=== PATIENT | female | born 1975 | race American Indian/Alaskan Native ===

== ENCOUNTER 2017-09-06 16:00 | Inpatient (IN) | payer SELFPAY ==
[2017-09-06] MEDS ORDERED: ASPIRIN PO ONE (17:07)
[2017-09-06 18:01] LABS: Mean Corpuscular HGB Conc 28 % (30-34); Platelet Count 562 K/mm3 (140-440); Red Blood Count 2.81 M/mm3 (3.65-5.03)
[2017-09-06 18:05] LABS: Hematocrit 17.3 % (30.3-42.9); Hemoglobin 4.9 gm/dl (10.1-14.3); Mean Corpuscular Hemoglobin 17 pg (28-32); Mean Corpuscular Volume 62 fl (79-97); Red Cell Distribution Width 24.7 % (13.2-15.2)
[2017-09-06 18:18] LABS: BUN/Creatinine Ratio 12; Blood Urea Nitrogen 6 mg/dL (7-17); Calcium 8.7 mg/dL (8.4-10.2); Hemolysis Index 4
[2017-09-06] MEDS ORDERED: NACL 0.9% 500 ML 500 ML IV ONE (18:29)
--- NOTE | 2017-09-06 18:34 | Emergency Department Report ---
ED General Adult HPI - General Chief complaint: Chest Pain Stated complaint: CHEST PAIN/DIZZINESS Time Seen by Provider: 09/06/17 18:13 Source: patient Mode of arrival: Ambulatory Limitations: No Limitations - History of Present Illness Initial comments: Patient presents to emergency department with a chief complaint of being lightheaded with standing and shortness of breath with exertion. Patient states this has been present for the last 3-4 weeks and the last time she felt like this patient Avel was 4.6. Patient denies any blood in her stool or having heavy cycles but endorses have any history of fibroid -: Gradual Radiation: non-radiation Severity scale (0 -10): 0 Consistency: constant Improves with: none Worsens with: none Associated Symptoms: denies other symptoms Treatments Prior to Arrival: none - Related Data Home Medications Medication Instructions Recorded Confirmed Last Taken Iron 1 tab PO TID 12/02/12 01/27/14 01/26/14 Previous Rx's Medication Instructions Recorded Last Taken Type Ferrous Sulfate [Ferrous Sulfate 300 mg PO BID #120 ml 04/10/17 Unknown Rx Oral Liq 300 Mg/5 Ml] Allergies Allergy/AdvReac Type Severity Reaction Status Date / Time shellfish derived Allergy Swelling Verified 12/02/12 11:22 ED Review of Systems ROS: Stated complaint: CHEST PAIN/DIZZINESS Other details as noted in HPI Comment: All other systems reviewed and negative Constitutional: denies: chills, fever Eyes: denies: eye pain, eye discharge, vision change ENT: denies: ear pain, throat pain Respiratory: SOB with exertion. denies: cough, shortness of breath, wheezing Cardiovascular: denies: chest pain, palpitations Endocrine: no symptoms reported Gastrointestinal: denies: abdominal pain, nausea, diarrhea Genitourinary: denies: urgency, dysuria, discharge Musculoskeletal: denies: back pain, joint swelling, arthralgia Skin: denies: rash, lesions Neurological: other (lightheaded). denies: headache, weakness, paresthesias Psychiatric: denies: anxiety, depression Hematological/Lymphatic: denies: easy bleeding, easy bruising ED Past Medical Hx - Past Medical History Hx Congestive Heart Failure: No Hx Diabetes: No Hx Asthma: No Hx COPD: No Hx HIV: No Additional medical history: Anemia - Surgical History Additional Surgical History: Ankle - Social History Smoking Status: Never Smoker Substance Use Type: Alcohol - Medications Home Medications: Home Medications Medication Instructions Recorded Confirmed Last Taken Type Iron 1 tab PO TID 12/02/12 01/27/14 01/26/14 History Ferrous Sulfate [Ferrous Sulfate 300 mg PO BID #120 ml 04/10/17 Unknown Rx Oral Liq 300 Mg/5 Ml] ED Physical Exam - General Limitations: No Limitations General appearance: alert, in no apparent distress - Head Head exam: Present: atraumatic, normocephalic - Eye Eye exam: Present: normal appearance, other (pale palpebral conjunctiva) - ENT ENT exam: Present: mucous membranes moist - Neck Neck exam: Present: normal inspection - Respiratory Respiratory exam: Present: normal lung sounds bilaterally. Absent: respiratory distress, wheezes, rales - Cardiovascular Cardiovascular Exam: Present: normal rhythm, tachycardia. Absent: systolic murmur, diastolic murmur, rubs, gallop - GI/Abdominal GI/Abdominal exam: Present: soft, normal bowel sounds. Absent: distended, tenderness - Rectal Rectal exam: Present: deferred, other (patient declined rectal exam) - Extremities Exam Extremities exam: Present: normal inspection - Back Exam Back exam: Present: normal inspection - Neurological Exam Neurological exam: Present: alert, oriented X3, CN II-XII intact. Absent: motor sensory deficit - Psychiatric Psychiatric exam: Present: normal affect, normal mood - Skin Skin exam: Present: warm, dry, intact, normal color. Absent: rash ED Course Vital Signs 09/06/17 09/06/17 09/06/17 17:02 18:52 19:20 Temperature 98.4 F 98.6 F 98.5 F Pulse Rate 92 H 90 89 Respiratory 16 16 18 Rate Blood Pressure 118/39 Blood Pressure 111/63 98/58 [Left] O2 Sat by Pulse 100 100 100 Oximetry 09/06/17 09/06/17 09/06/17 20:40 20:55 21:10 Temperature 98.2 F 98.8 F 98.7 F Pulse Rate 81 81 79 Respiratory 18 18 17 Rate Blood Pressure 104/62 97/64 101/64 Blood Pressure [Left] O2 Sat by Pulse 100 100 100 Oximetry ED Medical Decision Making - Lab Data Result diagrams: 09/06/17 17:24 09/06/17 17:24 - EKG Data EKG shows normal: sinus rhythm Rate: normal - EKG Data Interpretation: no acute changes - Medical Decision Making Discussed results with patient Transfusion of packed red blood cells started in the ED Critical Care Time: Yes Critical care time in (mins) excluding proc time.: 45 Critical care attestation.: If time is entered above; I have spent that time in minutes in the direct care of this critically ill patient, excluding procedure time. ED Disposition Clinical Impression: Anemia requiring transfusions Disposition: OP ADMIT IP TO THIS HOSP Is pt being admited?: Yes Does the pt Need Aspirin: No Condition: Fair Instructions: Anemia (ED) Referrals: PRIMARY CARE, [Primary Care Provider] - 3-5 Days Time of Disposition: 19:00
[2017-09-06 18:39] LABS: Giant Platelets 2+; Hypochromasia 3+; Total Cells Counted 100
[2017-09-06 18:40] LABS: Ovalocytes 1+; Platelet Estimate Appears Increased; Tear Drop Cells 1+
[2017-09-06 18:42] LABS: Schistocytes Few
[2017-09-06 19:11] LABS: INR 0.99 (0.87-1.13)
[2017-09-06 19:12] LABS: Partial Thromboplastin Time 30.1 Sec. (24.2-36.6)
[2017-09-06] MEDS ORDERED: NACL 0.9% 500 ML 500 ML ONE (20:32)
[2017-09-06] MEDS ORDERED: PERCOCET 5/325 PO PRN (23:37)
[2017-09-06] MEDS ORDERED: MORPHINE IV PRN (23:37)
[2017-09-06] MEDS ORDERED: ZOFRAN IV PRN (23:37)
[2017-09-06] MEDS ORDERED: SODIUM CHLORIDE FLUSH SYRINGE 10 ML IV PRN (23:37)
[2017-09-06] MEDS ORDERED: TYLENOL PO PRN (23:37)
--- NOTE | 2017-09-07 01:27 | History and Physical Report ---
History of Present Illness Date of examination: 09/06/17 Date of admission: 09/06/17 23:37 Chief complaint: Chief complaint: Feels weak and tired for 4 weeks Lightheaded off and on for 4 weeks History of present illness: History of Present Illness: 42-year-old black female comes in for shortness of breath and weakness. Feels dizzy and lightheaded. This is been going on for the last 4 weeks. Patient has recurrent anemia secondary to uterine fibroids. No syncope. No dark stools. Slightly heavy menstrual periods present. Patient also does not take any iron supplements because she says she cannot tolerate pills. No recent travel. No chest pain. No exacerbating or relieving factors Past Medical History Hx Congestive Heart Failure: No Hx Diabetes: No Hx Asthma: No Hx COPD: No Hx HIV: No Additional medical history: Anemia Surgical History Additional Surgical History: Ankle Social History Smoking Status: Never Smoker Substance Use Type: Alcohol Family history Htn Medications Home Medications: Home Medications Medication Instructions Recorded Confirmed Last Taken Type Iron 1 tab PO TID 12/02/12 01/27/14 01/26/14 History Ferrous Sulfate [Ferrous Sulfate 300 mg PO BID #120 ml 04/10/17 Unknown Rx Oral Liq 300 Mg/5 Ml] Review of Systems ROS: Stated complaint: CHEST PAIN/DIZZINESS Other details as noted in HPI Comment: All other systems reviewed and negative Constitutional: denies: chills, fever Eyes: denies: eye pain, eye discharge, vision change ENT: denies: ear pain, throat pain Respiratory: SOB with exertion. denies: cough, shortness of breath, wheezing Cardiovascular: denies: chest pain, palpitations Endocrine: no symptoms reported Gastrointestinal: denies: abdominal pain, nausea, diarrhea Genitourinary: denies: urgency, dysuria, discharge Musculoskeletal: denies: back pain, joint swelling, arthralgia Skin: denies: rash, lesions Neurological: other (lightheaded). denies: headache, weakness, paresthesias Psychiatric: denies: anxiety, depression Hematological/Lymphatic: denies: easy bleeding, easy bruising Medications and Allergies Allergies Allergy/AdvReac Type Severity Reaction Status Date / Time shellfish derived Allergy Swelling Verified 12/02/12 11:22 Home Medications Medication Instructions Recorded Confirmed Last Taken Type Iron 1 tab PO TID 12/02/12 01/27/14 01/26/14 History Ferrous Sulfate [Ferrous Sulfate 300 mg PO BID #120 ml 04/10/17 Unknown Rx Oral Liq 300 Mg/5 Ml] Active Meds: Active Medications Acetaminophen (Tylenol) 650 mg PO Q4H PRN PRN Reason: Pain MILD(1-3)/Fever >100.5/TOBAR Morphine Sulfate (Morphine) 2 mg IV Q4H PRN PRN Reason: Pain, Moderate (4-6) Ondansetron HCl (Zofran) 4 mg IV Q8H PRN PRN Reason: Nausea And Vomiting Oxycodone/Acetaminophen (Percocet 5/325) 1 tab PO Q6H PRN PRN Reason: Pain, Moderate (4-6) Sodium Chloride (Sodium Chloride Flush Syringe 10 Ml) 10 ml IV BID ALEJANDRINA Sodium Chloride (Sodium Chloride Flush Syringe 10 Ml) 10 ml IV PRN PRN PRN Reason: LINE FLUSH Exam - Physical Exam Narrative exam: Lying in bed comfortably - Constitutional Vitals: Temp Pulse Resp BP Pulse Ox 98.8 F 71 20 122/52 100 09/07/17 00:52 09/07/17 00:52 09/07/17 00:52 09/07/17 00:52 09/07/17 00:52 General appearance: Present: no acute distress, well-nourished - EENT Eyes: Present: PERRL ENT: hearing intact, clear oral mucosa, other (pale conjunctiva and tongue) - Neck Neck: Present: supple, normal ROM - Respiratory Respiratory effort: normal Respiratory: bilateral: CTA - Cardiovascular Heart rate: 80 Rhythm: regular Heart Sounds: Present: S1 & S2. Absent: rub, click - Extremities Extremities: no ischemia, pulses intact, pulses symmetrical, No edema Peripheral Pulses: within normal limits - Abdominal General gastrointestinal: Present: soft, non-tender, non-distended, normal bowel sounds Female genitourinary: Present: normal - Rectal Rectal Exam: deferred - Integumentary Integumentary: Present: clear, warm, dry - Musculoskeletal Musculoskeletal: gait normal, strength equal bilaterally - Psychiatric Psychiatric: appropriate mood/affect, intact judgment & insight - Neurologic Neurologic: CNII-XII intact, moves all extremities - Allied Health Allied health notes reviewed: nursing, case management Results - Labs CBC & Chem 7: 09/06/17 17:24 09/06/17 17:24 Labs: Laboratory Last Values WBC 5.8 K/mm3 (4.5-11.0) 09/06/17 17:24 RBC 2.81 M/mm3 (3.65-5.03) L 09/06/17 17:24 Hgb 4.9 gm/dl (10.1-14.3) L* 09/06/17 17:24 Hct 17.3 % (30.3-42.9) L* 09/06/17 17:24 MCV 62 fl (79-97) L 09/06/17 17:24 MCH 17 pg (28-32) L 09/06/17 17:24 MCHC 28 % (30-34) L 09/06/17 17:24 RDW 24.7 % (13.2-15.2) H 09/06/17 17:24 Plt Count 562 K/mm3 (140-440) H 09/06/17 17:24 Add Manual Diff Complete 09/06/17 17:24 Total Counted 100 09/06/17 17:24 Seg Neuts % (Manual) 69.0 % (40.0-70.0) 09/06/17 17:24 Band Neutrophils % 0 % 09/06/17 17:24 Lymphocytes % (Manual) 21.0 % (13.4-35.0) 09/06/17 17:24 Reactive Lymphs % (Man) 0 % 09/06/17 17:24 Monocytes % (Manual) 6.0 % (0.0-7.3) 09/06/17 17:24 Eosinophils % (Manual) 1.0 % (0.0-4.3) 09/06/17 17:24 Basophils % (Manual) 3.0 % (0.0-1.8) H 09/06/17 17:24 Metamyelocytes % 0 % 09/06/17 17:24 Myelocytes % 0 % 09/06/17 17:24 Promyelocytes % 0 % 09/06/17 17:24 Blast Cells % 0 % 09/06/17 17:24 Nucleated RBC % 2.0 % (0.0-0.9) H 09/06/17 17:24 Seg Neutrophils # Man 4.0 K/mm3 (1.8-7.7) 09/06/17 17:24 Band Neutrophils # 0.0 K/mm3 09/06/17 17:24 Lymphocytes # (Manual) 1.2 K/mm3 (1.2-5.4) 09/06/17 17:24 Abs React Lymphs (Man) 0.0 K/mm3 09/06/17 17:24 Monocytes # (Manual) 0.3 K/mm3 (0.0-0.8) 09/06/17 17:24 Eosinophils # (Manual) 0.1 K/mm3 (0.0-0.4) 09/06/17 17:24 Basophils # (Manual) 0.2 K/mm3 (0.0-0.1) H 09/06/17 17:24 Metamyelocytes # 0.0 K/mm3 09/06/17 17:24 Myelocytes # 0.0 K/mm3 09/06/17 17:24 Promyelocytes # 0.0 K/mm3 09/06/17 17:24 Blast Cells # 0.0 K/mm3 09/06/17 17:24 WBC Morphology Not Reportable 09/06/17 17:24 Hypersegmented Neuts Not Reportable 09/06/17 17:24 Hyposegmented Neuts Not Reportable 09/06/17 17:24 Hypogranular Neuts Not Reportable 09/06/17 17:24 Smudge Cells Not Reportable 09/06/17 17:24 Toxic Granulation Not Reportable 09/06/17 17:24 Toxic Vacuolation Not Reportable 09/06/17 17:24 Dohle Bodies Not Reportable 09/06/17 17:24 Pelger-Huet Anomaly Not Reportable 09/06/17 17:24 Jethro Rods Not Reportable 09/06/17 17:24 Platelet Estimate Appears increased 09/06/17 17:24 Clumped Platelets Not Reportable 09/06/17 17:24 Plt Clumps, EDTA Not Reportable 09/06/17 17:24 Large Platelets Not Reportable 09/06/17 17:24 Giant Platelets 2+ 09/06/17 17:24 Platelet Satelliting Not Reportable 09/06/17 17:24 Plt Morphology Comment Not Reportable 09/06/17 17:24 RBC Morphology Not Reportable 09/06/17 17:24 Dimorphic RBCs Not Reportable 09/06/17 17:24 Polychromasia Not Reportable 09/06/17 17:24 Hypochromasia 3+ 09/06/17 17:24 Poikilocytosis Not Reportable 09/06/17 17:24 Anisocytosis Not Reportable 09/06/17 17:24 Microcytosis 2+ 09/06/17 17:24 Macrocytosis Not Reportable 09/06/17 17:24 Spherocytes Not Reportable 09/06/17 17:24 Pappenheimer Bodies Not Reportable 09/06/17 17:24 Sickle Cells Not Reportable 09/06/17 17:24 Target Cells Not Reportable 09/06/17 17:24 Tear Drop Cells 1+ 09/06/17 17:24 Ovalocytes 1+ 09/06/17 17:24 Helmet Cells Not Reportable 09/06/17 17:24 [place] Bodies Not Reportable 09/06/17 17:24 Kenna Rings Not Reportable 09/06/17 17:24 [place] Cells Not Reportable 09/06/17 17:24 Bite Cells Not Reportable 09/06/17 17:24 Crenated Cell Not Reportable 09/06/17 17:24 Elliptocytes 1+ 09/06/17 17:24 Acanthocytes (Spur) Not Reportable 09/06/17 17:24 Rouleaux Not Reportable 09/06/17 17:24 Hemoglobin C Crystals Not Reportable 09/06/17 17:24 Schistocytes Few 09/06/17 17:24 Malaria parasites Not Reportable 09/06/17 17:24 Boni Bodies Not Reportable 09/06/17 17:24 Hem Pathologist Commnt No 09/06/17 17:24 PT 13.6 Sec. (12.2-14.9) 09/06/17 18:47 INR 0.99 (0.87-1.13) 09/06/17 18:47 APTT 30.1 Sec. (24.2-36.6) 09/06/17 18:47 Sodium 135 mmol/L (137-145) L 09/06/17 17:24 Potassium 3.7 mmol/L (3.6-5.0) 09/06/17 17:24 Chloride 97.8 mmol/L (98-107) L 09/06/17 17:24 Carbon Dioxide 22 mmol/L (22-30) 09/06/17 17:24 Anion Gap 19 mmol/L 09/06/17 17:24 BUN 6 mg/dL (7-17) L 09/06/17 17:24 Creatinine 0.5 mg/dL (0.7-1.2) L 09/06/17 17:24 Estimated GFR > 60 ml/min 09/06/17 17:24 BUN/Creatinine Ratio 12 % 09/06/17 17:24 Glucose 86 mg/dL (65-100) 09/06/17 17:24 Calcium 8.7 mg/dL (8.4-10.2) 09/06/17 17:24 Troponin T < 0.010 ng/mL (0.00-0.029) 09/06/17 23:00 Blood Type O POSITIVE 09/06/17 18:47 Antibody Screen Negative 09/06/17 18:47 Crossmatch See Detail 09/06/17 18:47 - Imaging and Cardiology EKG: report reviewed (heart rate 80 per minute sinus rhythm ) Assessment and Plan Advance Directives: Yes (full code) VTE prophylaxis?: Chemical Plan of care discussed with patient/family: Yes - Patient Problems (1) Anemia due to blood loss, chronic Current Visit: Yes Status: Acute Plan to address problem: Transfused 2-4 units of packed red blood cells Patient may need hysterectomy but willing to get it done after she gets her medical insurance Recheck hemoglobin and hematocrit Secondary to uterine fibroids and nutritional (2) Abnormal uterine bleeding (AUB) Current Visit: No Status: Chronic Plan to address problem: Secondary to fibroids Refer to ORCHESTRATOR as outpatient (3) Vitamin D deficiency Current Visit: Yes Status: Chronic Plan to address problem: continue vitamin D supplements (4) DVT prophylaxis Current Visit: No Status: Acute Plan to address problem: Only SCDs
[2017-09-07] MEDS ORDERED: NACL 0.9% 500 ML 500 ML ONE (01:51)
[2017-09-07] MEDS ORDERED: TYLENOL PO PRN (04:11)
[2017-09-07] MEDS ORDERED: SODIUM CHLORIDE FLUSH SYRINGE 10 ML IV PRN (04:11)
[2017-09-07] MEDS ORDERED: ZOFRAN IV PRN (04:11)
[2017-09-07] MEDS ORDERED: NACL 0.9% 500 ML 500 ML IV ONE (04:12)
[2017-09-07 06:33] LABS: Hematocrit 28.5 % (30.3-42.9); Hemoglobin 8.9 gm/dl (10.1-14.3); Mean Corpuscular HGB Conc 31 % (30-34); Mean Corpuscular Hemoglobin 22 pg (28-32); Mean Corpuscular Volume 72 fl (79-97); Platelet Count 481 K/mm3 (140-440); Red Blood Count 3.96 M/mm3 (3.65-5.03)
[2017-09-07 06:34] LABS: Red Cell Distribution Width 29.6 % (13.2-15.2)
[2017-09-07 06:52] LABS: BUN/Creatinine Ratio 10; Blood Urea Nitrogen 5 mg/dL (7-17); Calcium 8.9 mg/dL (8.4-10.2); Hemolysis Index 4
--- NOTE | 2017-09-07 07:39 | Progress Note ---
Assessment and Plan Assessment and plan: Ms. Singletary is a 42 yo woman with a history of anemia due to uterine fibroids/ menorrhagia with iron deficiency unable to tolerate iron pills who presented with dizziness, fatigue and sob. hgb 4.9 to 8.9, mcv 72, s/p 3 units PRBC transfused pCXR which was negative -Acute on chronic blood loss anemia: Transfused 3 units of PRBC -Iron deficiency anemia from chronic blood loss, intolerate to oral Iron, ?need iv iron transfusion: check FOBT, unable to tolerated oral Iron, consult Hematology for possible iron transfusion. -Menorrhagia: Secondary to fibroids, continue to follow up [employer] as outpatient -Vitamin D deficiency per outpatient Labs, level of vit D 25OH was 16.7: continue vitamin D supplements -DVT prophylaxis: Only SCDs check FOBT, which is pending I ordered iron studies History Interval history: Patient was seen and examined. Follow-up on current diagnosis of sob, dizziness resolved. Overnight uneventful. Patient denies any chest pain, shortness breath , nausea/vomiting or severe headaches. Imaging, nursing note, chart, labs and old chart reviewed. Discussed with patient. She denies heavy periods now, she does bleed heavy with 2-3 pads per day for the first 3 days of menses but bleeding slows down. Hospitalist Physical - Physical exam Narrative exam: GEN: WDWN, NAD, Awake, Alert, Orientated x 3 HEENT: NCAT, EOMI, PERRL, OP Clear NECK: supple, no adenopathy, no thyromegaly, no JVD CVS/HEART: RRR, normal S1S2, pulses present bilaterally CHEST/LUNGS: CTA B, Symmetrical chest expansion, good air entry bilaterally GI/Abdomen: soft, NTND, good bowel sounds, no guarding or rebound /Bladder: no suprapubic tenderness, no CVA or paraspinal tenderness EXT/Skin: no c/c/e, no obvious rash MSK: FROM x 4 Neuro: CN 2-12 grossly intact, no new focal deficits Psych: calm - Constitutional Vitals: Temp Pulse Resp BP Pulse Ox 98.3 F 64 18 120/73 100 09/07/17 04:41 09/07/17 04:41 09/07/17 07:11 09/07/17 04:41 09/07/17 04:41 General appearance: Present: no acute distress, well-nourished Results - Labs CBC & Chem 7: 09/07/17 06:17 09/07/17 06:17 Labs: Laboratory Last Values WBC 6.9 K/mm3 (4.5-11.0) 09/07/17 06:17 RBC 3.96 M/mm3 (3.65-5.03) 09/07/17 06:17 Hgb 8.9 gm/dl (10.1-14.3) L D 09/07/17 06:17 Hct 28.5 % (30.3-42.9) L D 09/07/17 06:17 MCV 72 fl (79-97) L 09/07/17 06:17 MCH 22 pg (28-32) L 09/07/17 06:17 MCHC 31 % (30-34) 09/07/17 06:17 RDW 29.6 % (13.2-15.2) H 09/07/17 06:17 Plt Count 481 K/mm3 (140-440) H 09/07/17 06:17 Add Manual Diff Complete 09/06/17 17:24 Total Counted 100 09/06/17 17:24 Seg Neuts % (Manual) 69.0 % (40.0-70.0) 09/06/17 17:24 Band Neutrophils % 0 % 09/06/17 17:24 Lymphocytes % (Manual) 21.0 % (13.4-35.0) 09/06/17 17:24 Reactive Lymphs % (Man) 0 % 09/06/17 17:24 Monocytes % (Manual) 6.0 % (0.0-7.3) 09/06/17 17:24 Eosinophils % (Manual) 1.0 % (0.0-4.3) 09/06/17 17:24 Basophils % (Manual) 3.0 % (0.0-1.8) H 09/06/17 17:24 Metamyelocytes % 0 % 09/06/17 17:24 Myelocytes % 0 % 09/06/17 17:24 Promyelocytes % 0 % 09/06/17 17:24 Blast Cells % 0 % 09/06/17 17:24 Nucleated RBC % 2.0 % (0.0-0.9) H 09/06/17 17:24 Seg Neutrophils # Man 4.0 K/mm3 (1.8-7.7) 09/06/17 17:24 Band Neutrophils # 0.0 K/mm3 09/06/17 17:24 Lymphocytes # (Manual) 1.2 K/mm3 (1.2-5.4) 09/06/17 17:24 Abs React Lymphs (Man) 0.0 K/mm3 09/06/17 17:24 Monocytes # (Manual) 0.3 K/mm3 (0.0-0.8) 09/06/17 17:24 Eosinophils # (Manual) 0.1 K/mm3 (0.0-0.4) 09/06/17 17:24 Basophils # (Manual) 0.2 K/mm3 (0.0-0.1) H 09/06/17 17:24 Metamyelocytes # 0.0 K/mm3 09/06/17 17:24 Myelocytes # 0.0 K/mm3 09/06/17 17:24 Promyelocytes # 0.0 K/mm3 09/06/17 17:24 Blast Cells # 0.0 K/mm3 09/06/17 17:24 WBC Morphology Not Reportable 09/06/17 17:24 Hypersegmented Neuts Not Reportable 09/06/17 17:24 Hyposegmented Neuts Not Reportable 09/06/17 17:24 Hypogranular Neuts Not Reportable 09/06/17 17:24 Smudge Cells Not Reportable 09/06/17 17:24 Toxic Granulation Not Reportable 09/06/17 17:24 Toxic Vacuolation Not Reportable 09/06/17 17:24 Dohle Bodies Not Reportable 09/06/17 17:24 Pelger-Huet Anomaly Not Reportable 09/06/17 17:24 Jethro Rods Not Reportable 09/06/17 17:24 Platelet Estimate Appears increased 09/06/17 17:24 Clumped Platelets Not Reportable 09/06/17 17:24 Plt Clumps, EDTA Not Reportable 09/06/17 17:24 Large Platelets Not Reportable 09/06/17 17:24 Giant Platelets 2+ 09/06/17 17:24 Platelet Satelliting Not Reportable 09/06/17 17:24 Plt Morphology Comment Not Reportable 09/06/17 17:24 RBC Morphology Not Reportable 09/06/17 17:24 Dimorphic RBCs Not Reportable 09/06/17 17:24 Polychromasia Not Reportable 09/06/17 17:24 Hypochromasia 3+ 09/06/17 17:24 Poikilocytosis Not Reportable 09/06/17 17:24 Anisocytosis Not Reportable 09/06/17 17:24 Microcytosis 2+ 09/06/17 17:24 Macrocytosis Not Reportable 09/06/17 17:24 Spherocytes Not Reportable 09/06/17 17:24 Pappenheimer Bodies Not Reportable 09/06/17 17:24 Sickle Cells Not Reportable 09/06/17 17:24 Target Cells Not Reportable 09/06/17 17:24 Tear Drop Cells 1+ 09/06/17 17:24 Ovalocytes 1+ 09/06/17 17:24 Helmet Cells Not Reportable 09/06/17 17:24 Heck-[place] Bodies Not Reportable 09/06/17 17:24 [place] Rings Not Reportable 09/06/17 17:24 [place] Cells Not Reportable 09/06/17 17:24 Bite Cells Not Reportable 09/06/17 17:24 Crenated Cell Not Reportable 09/06/17 17:24 Elliptocytes 1+ 09/06/17 17:24 Acanthocytes (Spur) Not Reportable 09/06/17 17:24 Rouleaux Not Reportable 09/06/17 17:24 Hemoglobin C Crystals Not Reportable 09/06/17 17:24 Schistocytes Few 09/06/17 17:24 Malaria parasites Not Reportable 09/06/17 17:24 Boni Bodies Not Reportable 09/06/17 17:24 Hem Pathologist Commnt No 09/06/17 17:24 PT 13.6 Sec. (12.2-14.9) 09/06/17 18:47 INR 0.99 (0.87-1.13) 09/06/17 18:47 APTT 30.1 Sec. (24.2-36.6) 09/06/17 18:47 Sodium 139 mmol/L (137-145) 09/07/17 06:17 Potassium 4.1 mmol/L (3.6-5.0) 09/07/17 06:17 Chloride 104.4 mmol/L (98-107) 09/07/17 06:17 Carbon Dioxide 20 mmol/L (22-30) L 09/07/17 06:17 Anion Gap 19 mmol/L 09/07/17 06:17 BUN 5 mg/dL (7-17) L 09/07/17 06:17 Creatinine 0.5 mg/dL (0.7-1.2) L 09/07/17 06:17 Estimated GFR > 60 ml/min 09/07/17 06:17 BUN/Creatinine Ratio 10 % 09/07/17 06:17 Glucose 95 mg/dL (65-100) 09/07/17 06:17 Calcium 8.9 mg/dL (8.4-10.2) 09/07/17 06:17 Troponin T < 0.010 ng/mL (0.00-0.029) 09/06/17 23:00 Blood Type O POSITIVE 09/06/17 18:47 Antibody Screen Negative 09/06/17 18:47 Crossmatch See Detail 09/06/17 18:47
--- NOTE | 2017-09-07 08:04 | XRay Report ---
Single view chest: History: Shortness of breath. Findings: Normal cardiomediastinal silhouette. Trachea is midline. No consolidation, pneumothorax or pleural effusion. Impression: No acute cardiopulmonary findings.
[2017-09-07 08:53] LABS: Basophils % (Manual) 0 % (0.0-1.8); Total Cells Counted 100
[2017-09-07 08:54] LABS: Hypochromasia 1+; Large Platelets Few; Ovalocytes 1+; Platelet Estimate Consistent w Auto; Schistocytes Rare; Tear Drop Cells 1+
[2017-09-07] MEDS ORDERED: VITAMIN D3 PO SCH (10:00)
[2017-09-07] MEDS ORDERED: FERROUS SULFATE PO SCH (10:00)
[2017-09-07] MEDS ORDERED: SODIUM CHLORIDE FLUSH SYRINGE 10 ML IV SCH (10:00)
[2017-09-07] MEDS: SODIUM CHLORIDE FLUSH SYRINGE 10 ML IV SCH ×2 (10:18→22:00)
[2017-09-07] MEDS: PEPCID PO SCH ×2 (10:18→22:00)
[2017-09-07 13:13] VITALS: BP 112/61
[2017-09-07 14:22] LABS: Iron 15 ug/dL (37-170); Total Iron Binding Capacity 420 mcg/dL (250-450)
--- NOTE | 2017-09-07 18:21 | Discharge Summary ---
Providers - Providers Date of Admission: 09/06/17 23:37 Date of discharge: 09/07/17 Attending physician: KALI GARNETT 09/07/17 Consult to Case Management [CONS] Routine Services Needed at Discharge: Photographic Reproduction Technician Notified:: [email or web address] 09/07/17 12:10 Consult to Physician [CONS] Routine Comment: Consulting Provider: GARTH KINGSTON Physician Instructions: Reason For Exam: Evaluate for iron transfusion with anemia Primary care physician: DIRECTOR OF CUSTOMER ACQUISITION Hospitalization Condition: Stable Hospital course: Ms. Singletary is a 42 yo woman with a history of anemia due to uterine fibroids/ menorrhagia with iron deficiency unable to tolerate iron pills who presented with dizziness, fatigue and sob. hgb 4.9 to 8.9, mcv 72, s/p 3 units PRBC transfused pCXR which was negative -Acute on chronic blood loss anemia: Transfused 3 units of PRBC -Severe Iron deficiency anemia from chronic blood loss, intolerate to oral Iron , need iv iron transfusion: check FOBT, unable to tolerated oral Iron, consulted Hematology for possible iron transfusion. -Menorrhagia: Secondary to fibroids, continue to follow up CAR [facility]OCKEY as outpatient -Vitamin D deficiency per outpatient Labs, level of vit D 25OH was 16.7: continue vitamin D supplements -DVT prophylaxis: Only SCDs check FOBT, which is pending, CIRO Tobin labelled the Occult blood stool sample wrong, he put the wrong patient's instructional paraprofessional Ms. Singletary's sample. Will reorder I ordered iron studies==>severe iron deficiency anemia, pt refuses IV iron transfusion and wants to go home; she will leave A. I have spoke with her three times today to provide support and education but she refuses to stay. Disposition: DC-07 LEFT AGAINST MED ADVICE Time spent for discharge: 32 Core Measure Documentation - Palliative Care Palliative Care/ Comfort Measures: Not Applicable - Core Measures Any of the following diagnoses?: none - VTE Discharge Requirements Deep Vein Thrombosis/Pulmonary Embolism Present on Admission: No Has pt received <5 days of overlap therapy or INR<2.0: No Anticoagulant overlap therapy prescribed at discharge: No Contraindication No Overlap Therapy order at DC: Not Indicated Exam - Physical Exam Narrative exam: GEN: WDWN, NAD, Awake, Alert, Orientated x 3 HEENT: NCAT, EOMI, PERRL, OP Clear NECK: supple, no adenopathy, no thyromegaly, no JVD CVS/HEART: RRR, normal S1S2, pulses present bilaterally CHEST/LUNGS: CTA B, Symmetrical chest expansion, good air entry bilaterally GI/Abdomen: soft, NTND, good bowel sounds, no guarding or rebound /Bladder: no suprapubic tenderness, no CVA or paraspinal tenderness EXT/Skin: no c/c/e, no obvious rash MSK: FROM x 4 Neuro: CN 2-12 grossly intact, no new focal deficits Psych: calm - Constitutional Vitals: Temp Pulse Resp BP Pulse Ox 98.5 F 71 16 112/61 98 09/07/17 12:14 09/07/17 12:14 09/07/17 12:14 09/07/17 12:14 09/07/17 12:14 Plan Activity: other (no strenous activity until cleared by pcp, including driving work and sex) Diet: regular Additional Instructions: Take OTC iron supplements and miralax OTC for constipation. See your financial officer Follow up with: PRIMARY CAREMD [Primary Care Provider] - 3-5 Days GARTH KINGSTON DO [Staff Physician] - 7 Days
== END 2017-09-07 18:00 | disposition left against medical advice (07) | DRG 760 ==
LOC: ED 16:00 → 3A 23:37
PROVIDERS: ADMIT Internal Medicine; ATTEND Internal Medicine
PROC: 30233N1 Transfusion of Nonautologous Red Blood Cells into Peripheral Vein, Percutaneous Approach (ICD-10-PCS; principal; 2017-09-06)
DX: D25.9 Leiomyoma of uterus, unspecified (principal); D62 Acute posthemorrhagic anemia; D50.0 Iron deficiency anemia secondary to blood loss (chronic); N92.0 Excessive and frequent menstruation with regular cycle; N93.9 Abnormal uterine and vaginal bleeding, unspecified; E55.9 Vitamin D deficiency, unspecified; Z72.89 Other problems related to lifestyle; Z91.013 Allergy to seafood; Z79.899 Other long term (current) drug therapy
CPT/HCPCS: 36415; 36430; 71045; 80048; 82728; 83550; 84484; 85007; 85025; 85610; 85730; 86850; 86900; 86901; 86920; 93005; 93010; J7040; P9016

== ENCOUNTER 2018-04-25 14:13 | Inpatient (IN) | payer OTHER ==
--- NOTE | 2018-04-25 14:51 | Emergency Department Report ---
Chief Complaint: Headache Stated Complaint: CHEST THROBBING Time Seen by Provider: 04/25/18 14:47 - HPI History of Present Illness: left sided CP that began this AM feels like a throbbing doesnt last long when it comes on nausea mild SOB frontal TOBAR, throbbing a couple of days No emesis, no radiation of the pain hx of anemia and not taking iron MSE screening note: Focused history and physical exam performed. Due to findings the following was ordered: CP protocol ED Disposition for MSE Condition: Stable
[2018-04-25 15:48] LABS: Basophils # (Auto) 0.1 K/mm3 (0.0-0.1); Basophils % (Auto) 1.5 % (0.0-1.8); Eosinophils # (Auto) 0.1 K/mm3 (0.0-0.4); Eosinophils % (Auto) 3.1 % (0.0-4.3); Lymphocytes # (Auto) 1.4 K/mm3 (1.2-5.4); Lymphocytes % (Auto) 28.7 % (13.4-35.0); Mean Corpuscular HGB Conc 28 % (30-34); Monocytes # (Auto) 0.2 K/mm3 (0.0-0.8); Platelet Count 755 K/mm3 (140-440); Red Blood Count 3.55 M/mm3 (3.65-5.03)
[2018-04-25 16:00] LABS: Partial Thromboplastin Time 32.8 Sec. (24.2-36.6)
[2018-04-25 16:01] LABS: Hematocrit 22.5 % (30.3-42.9); Hemoglobin 6.3 gm/dl (10.1-14.3)
[2018-04-25 16:02] LABS: Mean Corpuscular Volume 64 fl (79-97); Red Cell Distribution Width 23.8 % (13.2-15.2)
[2018-04-25] MEDS ORDERED: TORADOL IV ONE (16:02)
[2018-04-25] MEDS ORDERED: NACL 0.9% 1000 ML 1,000 ML IV ONE (16:02)
[2018-04-25] MEDS ORDERED: ZOFRAN IV ONE (16:02)
[2018-04-25 16:11] LABS: Alanine Aminotransferase 11 units/L (7-56); Albumin 4.4 g/dL (3.9-5); BUN/Creatinine Ratio 22; Blood Urea Nitrogen 11 mg/dL (7-17); Calcium 8.9 mg/dL (8.4-10.2); Hemolysis Index 0
--- NOTE | 2018-04-25 16:13 | XRay Report ---
PROCEDURE: XR CHEST ROUTINE 2V TECHNIQUE: 2 view chest HISTORY: Chest Pain COMPARISONS: Chest x-ray September 07, 2017 FINDINGS: Trachea midline. Heart size normal. No pneumothorax. No sizable effusion. No acute airspace disease. No acute bony abnormality. IMPRESSION: No active pulmonary disease.. This document is electronically signed by Maynor Baldwin MD., April 25 2018 04:11:35 PM ET
[2018-04-25 16:20] LABS: INR 1.01 (0.87-1.13)
[2018-04-25] MEDS ORDERED: NACL 0.9% 500 ML 500 ML IV ONE (16:26)
--- NOTE | 2018-04-25 16:37 | Emergency Department Report ---
ED General Adult HPI - General Chief complaint: Headache Stated complaint: CHEST THROBBING Time Seen by Provider: 04/25/18 14:47 Source: patient Mode of arrival: Ambulatory Limitations: No Limitations - History of Present Illness Initial comments: Patient is a 43-year-old Rosa Isela female who is presenting with headache and lightheadedness for last 2 days. Patient says throbbing sensation mostly in the frontal region. She denies any cough cold congestion. Patient has not had a headache like this before. Patient states she has some mild nausea but denies vomiting or diarrhea. Patient's also states she has a throbbing in her chest at times and she has exertional shortness of breath. Patient has a history of fibroids but is currently not bleeding heavily at this time. - Related Data Home Medications Medication Instructions Recorded Confirmed Last Taken Iron 1 tab PO TID 12/02/12 01/27/14 01/26/14 Previous Rx's Medication Instructions Recorded Last Taken Type Ferrous Sulfate [Ferrous Sulfate 300 mg PO BID #120 ml 04/10/17 Unknown Rx Oral Liq 300 Mg/5 Ml] Allergies Allergy/AdvReac Type Severity Reaction Status Date / Time shellfish derived Allergy Swelling Verified 04/25/18 14:14 ED Review of Systems ROS: Stated complaint: CHEST THROBBING Other details as noted in HPI Comment: All other systems reviewed and negative ED Past Medical Hx - Past Medical History Previous Medical History?: No Hx Congestive Heart Failure: No Hx Diabetes: No Hx Asthma: No Hx COPD: No Hx HIV: No Additional medical history: Anemia - Surgical History Past Surgical History?: Yes Additional Surgical History: Ankle - Social History Smoking Status: Never Smoker Substance Use Type: None - Medications Home Medications: Home Medications Medication Instructions Recorded Confirmed Last Taken Type Iron 1 tab PO TID 12/02/12 01/27/14 01/26/14 History Ferrous Sulfate [Ferrous Sulfate 300 mg PO BID #120 ml 04/10/17 Unknown Rx Oral Liq 300 Mg/5 Ml] ED Physical Exam - General Limitations: No Limitations General appearance: alert, in no apparent distress - Head Head exam: Present: atraumatic, normocephalic - Eye Eye exam: Present: normal appearance, PERRL, EOMI - ENT ENT exam: Present: normal orophraynx, mucous membranes moist - Neck Neck exam: Present: normal inspection. Absent: tenderness - Respiratory Respiratory exam: Present: normal lung sounds bilaterally. Absent: respiratory distress, wheezes, rales, rhonchi - Cardiovascular Cardiovascular Exam: Present: regular rate, normal rhythm. Absent: systolic murmur, diastolic murmur, rubs, gallop - GI/Abdominal GI/Abdominal exam: Present: soft, normal bowel sounds. Absent: distended, tenderness, guarding, rebound - Extremities Exam Extremities exam: Present: normal inspection - Back Exam Back exam: Present: normal inspection - Neurological Exam Neurological exam: Present: alert, oriented X3 - Psychiatric Psychiatric exam: Present: normal affect, normal mood - Skin Skin exam: Present: warm, dry, intact, normal color. Absent: rash ED Course Vital Signs 04/25/18 14:48 Temperature 97.5 F L Pulse Rate 71 Respiratory 16 Rate Blood Pressure 102/49 O2 Sat by Pulse 100 Oximetry ED Medical Decision Making - Lab Data Result diagrams: 04/25/18 15:26 04/25/18 15:26 Lab Results 04/25/18 04/25/18 04/25/18 Range/Units 15:26 15:26 15:26 WBC 4.8 (4.5-11.0) K/mm3 RBC 3.55 L (3.65-5.03) M/mm3 Hgb 6.3 L (10.1-14.3) gm/dl Hct 22.5 L (30.3-42.9) % MCV 64 L (79-97) fl MCH 18 L (28-32) pg MCHC 28 L (30-34) % RDW 23.8 H (13.2-15.2) % Plt Count 755 H (140-440) K/mm3 Lymph % (Auto) 28.7 (13.4-35.0) % Coke % (Auto) 5.0 (0.0-7.3) % Eos % (Auto) 3.1 (0.0-4.3) % Baso % (Auto) 1.5 (0.0-1.8) % Lymph # 1.4 (1.2-5.4) K/mm3 Coke # 0.2 (0.0-0.8) K/mm3 Eos # 0.1 (0.0-0.4) K/mm3 Baso # 0.1 (0.0-0.1) K/mm3 Seg Neutrophils % 61.7 (40.0-70.0) % Seg Neutrophils # 3.0 (1.8-7.7) K/mm3 PT 13.9 (12.2-14.9) Sec. INR 1.01 (0.87-1.13) APTT 32.8 (24.2-36.6) Sec. Sodium 137 (137-145) mmol/L Potassium 3.9 (3.6-5.0) mmol/L Chloride 103.5 (98-107) mmol/L Carbon Dioxide 22 (22-30) mmol/L Anion Gap 15 mmol/L BUN 11 (7-17) mg/dL Creatinine 0.5 L (0.7-1.2) mg/dL Estimated GFR > 60 ml/min BUN/Creatinine Ratio 22 % Glucose 102 H (65-100) mg/dL Calcium 8.9 (8.4-10.2) mg/dL Total Bilirubin 0.30 (0.1-1.2) mg/dL AST 19 (5-40) units/L ALT 11 (7-56) units/L Alkaline Phosphatase 50 (35-129) units/L Troponin T < 0.010 (0.00-0.029) ng/mL Total Protein 7.5 (6.3-8.2) g/dL Albumin 4.4 (3.9-5) g/dL Albumin/Globulin Ratio 1.4 % Blood Type Crossmatch 04/25/18 Range/Units 15:35 WBC (4.5-11.0) K/mm3 RBC (3.65-5.03) M/mm3 Hgb (10.1-14.3) gm/dl Hct (30.3-42.9) % MCV (79-97) fl MCH (28-32) pg MCHC (30-34) % RDW (13.2-15.2) % Plt Count (140-440) K/mm3 Lymph % (Auto) (13.4-35.0) % Coke % (Auto) (0.0-7.3) % Eos % (Auto) (0.0-4.3) % Baso % (Auto) (0.0-1.8) % Lymph # (1.2-5.4) K/mm3 Coke # (0.0-0.8) K/mm3 Eos # (0.0-0.4) K/mm3 Baso # (0.0-0.1) K/mm3 Seg Neutrophils % (40.0-70.0) % Seg Neutrophils # (1.8-7.7) K/mm3 PT (12.2-14.9) Sec. INR (0.87-1.13) APTT (24.2-36.6) Sec. Sodium (137-145) mmol/L Potassium (3.6-5.0) mmol/L Chloride (98-107) mmol/L Carbon Dioxide (22-30) mmol/L Anion Gap mmol/L BUN (7-17) mg/dL Creatinine (0.7-1.2) mg/dL Estimated GFR ml/min BUN/Creatinine Ratio % Glucose (65-100) mg/dL Calcium (8.4-10.2) mg/dL Total Bilirubin (0.1-1.2) mg/dL AST (5-40) units/L ALT (7-56) units/L Alkaline Phosphatase (35-129) units/L Troponin T (0.00-0.029) ng/mL Total Protein (6.3-8.2) g/dL Albumin (3.9-5) g/dL Albumin/Globulin Ratio % Blood Type O POSITIVE Crossmatch See Detail - EKG Data -: EKG Interpreted by Me EKG shows normal: sinus rhythm, axis, intervals, QRS complexes, ST-T waves Rate: normal - EKG Data Interpretation: normal EKG - Medical Decision Making Patient has a hemoglobin of 6.3. Patient is symptomatic and will be admitted to the hospital service at this time. Blood transfusion has been ordered for 1 unit of packed red blood cells and patient will be reassessed Critical Care Time: Yes (30) Critical care attestation.: If time is entered above; I have spent that time in minutes in the direct care of this critically ill patient, excluding procedure time. ED Disposition Clinical Impression: Symptomatic anemia, Anemia requiring transfusions Disposition: OP ADMIT IP TO THIS HOSP Is pt being admited?: Yes Does the pt Need Aspirin: No Condition: Stable Time of Disposition: 16:36
[2018-04-25] MEDS ORDERED: NACL 0.9% 500 ML 500 ML ONE ×3 (18:33→18:34)
[2018-04-26] MEDS ORDERED: ZOFRAN IV PRN (01:06)
[2018-04-26] MEDS ORDERED: SODIUM CHLORIDE FLUSH SYRINGE 10 ML IV PRN (01:06)
[2018-04-26] MEDS ORDERED: TYLENOL PO PRN (01:06)
[2018-04-26] MEDS ORDERED: DILAUDID IV PRN (01:06)
[2018-04-26] MEDS ORDERED: PERCOCET 5/325 PO PRN (01:06)
[2018-04-26] MEDS ORDERED: NACL 0.9% 500 ML 500 ML IV ONE (01:09)
[2018-04-26] MEDS: PEPCID IV SCH ×3 (03:24→21:41)
[2018-04-26 04:10] LABS: Hematocrit 21.3 % (30.3-42.9); Hemoglobin 6.3 gm/dl (10.1-14.3)
[2018-04-26 05:08] LABS: Hematocrit 21.3 % (30.3-42.9); Hemoglobin 6.4 gm/dl (10.1-14.3); Mean Corpuscular HGB Conc 30 % (30-34); Platelet Count 551 K/mm3 (140-440); Red Blood Count 3.23 M/mm3 (3.65-5.03)
[2018-04-26 05:21] LABS: Mean Corpuscular Volume 66 fl (79-97); Red Cell Distribution Width 27.2 % (13.2-15.2)
[2018-04-26 05:31] LABS: Alanine Aminotransferase 14 units/L (7-56); Albumin 3.6 g/dL (3.9-5); BUN/Creatinine Ratio 20; Blood Urea Nitrogen 10 mg/dL (7-17); Calcium 8.1 mg/dL (8.4-10.2); Hemolysis Index 7
--- NOTE | 2018-04-26 06:09 | Event Note ---
Date: 04/25/18 See H/p in reports Chest pain r/o NM Symptomatic Anemia Menorrhagia
[2018-04-26 06:21] LABS: Eosinophils % (Manual) 0 % (0.0-4.3); Total Cells Counted 100
[2018-04-26 06:22] LABS: Anisocytosis 3+; Hypochromasia 2+
[2018-04-26 06:23] LABS: Ovalocytes 1+; Platelet Estimate Appears Increased; Poikilocytosis 1+
--- NOTE | 2018-04-26 07:12 | History and Physical Report ---
CHIEF COMPLAINT: Lightheadedness and headache for 2 days. Also left-sided chest discomfort and throbbing sensation in the chest for the last 2 days. HISTORY OF PRESENT ILLNESS: No diaphoresis, no palpitations, no shortness of breath. Feels lightheaded, especially while standing. Also, headache intermittently. The patient has a history of fibroids and has heavy bleeding during the menstrual cycle. PAST MEDICAL HISTORY: As mentioned, none except recurrent anemia. PAST SURGICAL HISTORY: Ankle surgery. SOCIAL HISTORY: Does not smoke. No alcohol, no recreational drugs. FAMILY HISTORY: Hypertension. REVIEW OF SYSTEMS: Significant for headache, lightheadedness and left-sided chest pain and throbbing sensation in the left infraclavicular region. Otherwise, review of systems negative. PHYSICAL EXAMINATION: GENERAL: Young female, cooperative during examination. VITAL SIGNS: Blood pressure is 106/63, temperature is 97.6, pulse is 64, respirations are 18. HEENT: Unremarkable. Pupils equal and reactive. NECK: Supple, no lymphadenopathy, no thyromegaly. LUNGS: Clear to auscultation and percussion. Good air entry. CARDIOVASCULAR: S1, S2 heard. No gallop, no murmur, no rub. Apical impulse in left fifth intercostal space in midclavicular line. ABDOMEN: Soft and benign. No hepatosplenomegaly. No guarding, no rigidity. Hernial orifices are normal. EXTREMITIES: Good pedal pulses. No pedal edema. CENTRAL NERVOUS SYSTEM: Alert and oriented x 4, nonfocal exam. LABORATORY DATA: Significant for hemoglobin of 6.3 and hematocrit of 22.5. Low MCV, MCH and MCHC. Electrolytes are normal. Glucose is 106, hemoglobin A1c is less than 4.2. LFTs are normal. Albumin is normal. DIAGNOSTIC DATA: EKG shows normal sinus rhythm. Normal QRS complex. No acute ST-T wave changes. Chest x-ray within normal limits. ASSESSMENT AND PLAN: 1. Chest pain, rule out myocardial infarction, chest pain protocol. 2. Symptomatic anemia. The patient to be transfused 1-2 units of blood, ordered. 3. Menorrhagia and history of fibroids. The patient to follow with COLD PATCHER as outpatient. No FIBROUS WALLBOARD INSPECTOR consult was requested. 4. Deep venous thrombosis prophylaxis. No Lovenox was initiated. JOB# [id number] PATSY/CESIA
[2018-04-26] MEDS ORDERED: FOLIC ACID PO SCH (10:00)
[2018-04-26] MEDS ORDERED: IRON PO SCH (10:00)
[2018-04-26] MEDS ORDERED: MULTIVITAMIN PO SCH (10:00)
[2018-04-26 10:38] LABS: Hematocrit 24.5 % (30.3-42.9); Hemoglobin 7.3 gm/dl (10.1-14.3)
[2018-04-26] MEDS: VITAMIN B-12 PO SCH (12:04)
[2018-04-26] MEDS: THERAGRAN-M Tab PO SCH (12:04)
[2018-04-26] MEDS: SODIUM CHLORIDE FLUSH SYRINGE 10 ML IV SCH ×2 (12:05→21:56)
[2018-04-26 13:08] LABS: Iron 9 ug/dL (37-170); Total Iron Binding Capacity 384 mcg/dL (250-450)
--- NOTE | 2018-04-26 16:36 | Progress Note ---
Assessment and Plan Assessment and plan: Patient is 43 yo woman with a history of anemia due to uterine fibroids/menorrhagia with iron deficiency unable to tolerate iron pills, vitamin D deficiency who presented to [facility] with chest pains, lightheadedness and headaches -Acute on chronic blood loss anemia s/p 2 units: order FOBT -Severe Iron deficiency: consult Heme/onc, get iron studies==>start iron infusion -H/o Fibroids, left AMA last time I took care of her in august 2017, has not seen anime artist: primary substance abuse counselor on compliance -Chest pains most likely related to anemia: refused stress test, also refuse repeat troponin History Interval history: Patient was seen and examined. Follow-up on current diagnosis. Overnight uneventful. Patient denies any chest pain, shortness breath, nausea/vomiting or severe headaches. Imaging, nursing note, chart, labs and old chart reviewed. Discussed with patient. Hospitalist Physical - Physical exam Narrative exam: GEN: WDWN, NAD, Awake, Alert, Orientated HEENT: NCAT, EOMI, PERRL, OP Clear NECK: supple, no adenopathy, no thyromegaly, no JVD CVS/HEART: RRR, normal S1S2, pulses present bilaterally CHEST/LUNGS: CTA B, Symmetrical chest expansion, good air entry bilaterally GI/Abdomen: soft, NTND, good bowel sounds, no guarding or rebound /Bladder: no suprapubic tenderness, no CVA or paraspinal tenderness EXT/Skin: no c/c/e, no obvious rash MSK: FROM x 4 Neuro: CN 2-12 grossly intact, no new focal deficits Psych: calm - Constitutional Vitals: Temp Pulse Resp BP Pulse Ox 98.3 F 88 15 105/56 97 04/26/18 11:59 04/26/18 12:05 04/26/18 11:59 04/26/18 11:59 04/26/18 05:25 Results - Labs CBC & Chem 7: 04/26/18 10:21 04/26/18 04:48 Labs: Laboratory Last Values WBC 4.5 K/mm3 (4.5-11.0) 04/26/18 04:48 RBC 3.23 M/mm3 (3.65-5.03) L 04/26/18 04:48 Hgb 7.3 gm/dl (10.1-14.3) L 04/26/18 10:21 Hct 24.5 % (30.3-42.9) L 04/26/18 10:21 MCV 66 fl (79-97) L 04/26/18 04:48 MCH 20 pg (28-32) L 04/26/18 04:48 MCHC 30 % (30-34) 04/26/18 04:48 RDW 27.2 % (13.2-15.2) H 04/26/18 04:48 Plt Count 551 K/mm3 (140-440) H 04/26/18 04:48 Lymph % (Auto) 28.7 % (13.4-35.0) 04/25/18 15:26 [place] % (Auto) 5.0 % (0.0-7.3) 04/25/18 15:26 Eos % (Auto) 3.1 % (0.0-4.3) 04/25/18 15:26 Baso % (Auto) 1.5 % (0.0-1.8) 04/25/18 15:26 Lymph # 1.4 K/mm3 (1.2-5.4) 04/25/18 15:26 [place] # 0.2 K/mm3 (0.0-0.8) 04/25/18 15:26 Eos # 0.1 K/mm3 (0.0-0.4) 04/25/18 15:26 Baso # 0.1 K/mm3 (0.0-0.1) 04/25/18 15:26 Add Manual Diff Complete 04/26/18 04:48 Total Counted 100 04/26/18 04:48 Seg Neutrophils % 61.7 % (40.0-70.0) 04/25/18 15:26 Seg Neuts % (Manual) 67.0 % (40.0-70.0) 04/26/18 04:48 Band Neutrophils % 1.0 % 04/26/18 04:48 Lymphocytes % (Manual) 26.0 % (13.4-35.0) 04/26/18 04:48 Reactive Lymphs % (Man) 0 % 04/26/18 04:48 Monocytes % (Manual) 4.0 % (0.0-7.3) 04/26/18 04:48 Eosinophils % (Manual) 0 % (0.0-4.3) 04/26/18 04:48 Basophils % (Manual) 2.0 % (0.0-1.8) H 04/26/18 04:48 Metamyelocytes % 0 % 04/26/18 04:48 Myelocytes % 0 % 04/26/18 04:48 Promyelocytes % 0 % 04/26/18 04:48 Blast Cells % 0 % 04/26/18 04:48 Nucleated RBC % Not Reportable 04/26/18 04:48 Seg Neutrophils # 3.0 K/mm3 (1.8-7.7) 04/25/18 15:26 Seg Neutrophils # Man 3.0 K/mm3 (1.8-7.7) 04/26/18 04:48 Band Neutrophils # 0.0 K/mm3 04/26/18 04:48 Lymphocytes # (Manual) 1.2 K/mm3 (1.2-5.4) 04/26/18 04:48 Abs React Lymphs (Man) 0.0 K/mm3 04/26/18 04:48 Monocytes # (Manual) 0.2 K/mm3 (0.0-0.8) 04/26/18 04:48 Eosinophils # (Manual) 0.0 K/mm3 (0.0-0.4) 04/26/18 04:48 Basophils # (Manual) 0.1 K/mm3 (0.0-0.1) 04/26/18 04:48 Metamyelocytes # 0.0 K/mm3 04/26/18 04:48 Myelocytes # 0.0 K/mm3 04/26/18 04:48 Promyelocytes # 0.0 K/mm3 04/26/18 04:48 Blast Cells # 0.0 K/mm3 04/26/18 04:48 WBC Morphology Not Reportable 04/26/18 04:48 Hypersegmented Neuts Not Reportable 04/26/18 04:48 Hyposegmented Neuts Not Reportable 04/26/18 04:48 Hypogranular Neuts Not Reportable 04/26/18 04:48 Smudge Cells Not Reportable 04/26/18 04:48 Toxic Granulation Not Reportable 04/26/18 04:48 Toxic Vacuolation Not Reportable 04/26/18 04:48 Dohle Bodies Not Reportable 04/26/18 04:48 Pelger-Huet Anomaly Not Reportable 04/26/18 04:48 Jethro Rods Not Reportable 04/26/18 04:48 Platelet Estimate Appears increased 04/26/18 04:48 Clumped Platelets Not Reportable 04/26/18 04:48 Plt Clumps, EDTA Not Reportable 04/26/18 04:48 Large Platelets Not Reportable 04/26/18 04:48 Giant Platelets Not Reportable 04/26/18 04:48 Platelet Satelliting Not Reportable 04/26/18 04:48 Plt Morphology Comment Not Reportable 04/26/18 04:48 RBC Morphology Not Reportable 04/26/18 04:48 Dimorphic RBCs Not Reportable 04/26/18 04:48 Polychromasia Not Reportable 04/26/18 04:48 Hypochromasia 2+ 04/26/18 04:48 Poikilocytosis 1+ 04/26/18 04:48 Anisocytosis 3+ 04/26/18 04:48 Microcytosis 1+ 04/26/18 04:48 Macrocytosis Not Reportable 04/26/18 04:48 Spherocytes Not Reportable 04/26/18 04:48 Pappenheimer Bodies Not Reportable 04/26/18 04:48 Sickle Cells Not Reportable 04/26/18 04:48 Target Cells Not Reportable 04/26/18 04:48 Tear Drop Cells Not Reportable 04/26/18 04:48 Ovalocytes 1+ 04/26/18 04:48 Helmet Cells Not Reportable 04/26/18 04:48 [place] Bodies Not Reportable 04/26/18 04:48 [place] Rings Not Reportable 04/26/18 04:48 Isaias Cells Not Reportable 04/26/18 04:48 Bite Cells Not Reportable 04/26/18 04:48 Crenated Cell Not Reportable 04/26/18 04:48 Elliptocytes 1+ 04/26/18 04:48 Acanthocytes (Spur) Not Reportable 04/26/18 04:48 Rouleaux Not Reportable 04/26/18 04:48 Hemoglobin C Crystals Not Reportable 04/26/18 04:48 Schistocytes Not Reportable 04/26/18 04:48 Malaria parasites Not Reportable 04/26/18 04:48 Boni Bodies Not Reportable 04/26/18 04:48 Hem Pathologist Commnt No 04/26/18 04:48 PT 13.9 Sec. (12.2-14.9) 04/25/18 15:26 INR 1.01 (0.87-1.13) 04/25/18 15:26 APTT 32.8 Sec. (24.2-36.6) 04/25/18 15:26 Sodium 141 mmol/L (137-145) 04/26/18 04:48 Potassium 3.7 mmol/L (3.6-5.0) 04/26/18 04:48 Chloride 107.8 mmol/L (98-107) H 04/26/18 04:48 Carbon Dioxide 21 mmol/L (22-30) L 04/26/18 04:48 Anion Gap 16 mmol/L 04/26/18 04:48 BUN 10 mg/dL (7-17) 04/26/18 04:48 Creatinine 0.5 mg/dL (0.7-1.2) L 04/26/18 04:48 Estimated GFR > 60 ml/min 04/26/18 04:48 BUN/Creatinine Ratio 20 % 04/26/18 04:48 Glucose 87 mg/dL (65-100) 04/26/18 04:48 Hemoglobin A1c < 4.2 % (4-6) 04/26/18 03:32 Calcium 8.1 mg/dL (8.4-10.2) L 04/26/18 04:48 Iron 9 ug/dL (37-170) L 04/26/18 12:20 TIBC 384 mcg/dL (250-450) 04/26/18 12:20 Ferritin 4.7 ng/mL (13.0-400.0) L 04/26/18 12:20 Total Bilirubin 0.30 mg/dL (0.1-1.2) 04/26/18 04:48 AST 29 units/L (5-40) 04/26/18 04:48 ALT 14 units/L (7-56) 04/26/18 04:48 Alkaline Phosphatase 40 units/L (35-129) 04/26/18 04:48 Troponin T < 0.010 ng/mL (0.00-0.029) 04/26/18 10:21 Total Protein 5.7 g/dL (6.3-8.2) L D 04/26/18 04:48 Albumin 3.6 g/dL (3.9-5) L 04/26/18 04:48 Albumin/Globulin Ratio 1.7 % 04/26/18 04:48 Blood Type O POSITIVE 04/25/18 15:35 Antibody Screen Negative 04/25/18 15:35 Crossmatch See Detail 04/25/18 15:35
[2018-04-26] MEDS ORDERED: FERRLECIT 125 MG in NACL 0.9% 100 ML IV ONE (16:37)
[2018-04-27 05:22] LABS: Hematocrit 24.4 % (30.3-42.9); Hemoglobin 7.4 gm/dl (10.1-14.3); Mean Corpuscular HGB Conc 30 % (30-34); Platelet Count 464 K/mm3 (140-440); Red Blood Count 3.57 M/mm3 (3.65-5.03)
[2018-04-27 05:23] LABS: Mean Corpuscular Volume 68 fl (79-97); Red Cell Distribution Width 29.7 % (13.2-15.2)
[2018-04-27] MEDS: SODIUM CHLORIDE FLUSH SYRINGE 10 ML IV SCH (09:50)
[2018-04-27] MEDS: PEPCID IV SCH (09:50)
[2018-04-27] MEDS: THERAGRAN-M Tab PO SCH (09:50)
[2018-04-27] MEDS: VITAMIN B-12 PO SCH (09:50)
[2018-04-27 13:05] VITALS: BP 105/62
--- NOTE | 2018-04-27 13:44 | Progress Note ---
Assessment and Plan Assessment and plan: Patient is 43 yo woman with a history of anemia due to uterine fibroids/menorrhagia with iron deficiency unable to tolerate iron pills, vitamin D deficiency who presented to [facility] with chest pains, lightheadedness and headaches -Acute on chronic blood loss anemia s/p 2 units: order FOBT -Severe Iron deficiency: consult Heme/onc, get iron studies==>start iron infusion -H/o Fibroids, left AMA last time I took care of her in august 2017, has not seen pantographer: admissions counselor on compliance -Chest pains most likely related to anemia: refused stress test, also refuse repeat troponin History Interval history: Patient was seen and examined. Follow-up on current diagnosis. Overnight uneventful. Patient denies any chest pain, shortness breath, nausea/vomiting or severe headaches. Imaging, nursing note, chart, labs and old chart reviewed. Discussed with patient. Hospitalist Physical - Physical exam Narrative exam: GEN: WDWN, NAD, Awake, Alert, Orientated HEENT: NCAT, EOMI, PERRL, OP Clear NECK: supple, no adenopathy, no thyromegaly, no JVD CVS/HEART: RRR, normal S1S2, pulses present bilaterally CHEST/LUNGS: CTA B, Symmetrical chest expansion, good air entry bilaterally GI/Abdomen: soft, NTND, good bowel sounds, no guarding or rebound /Bladder: no suprapubic tenderness, no CVA or paraspinal tenderness EXT/Skin: no c/c/e, no obvious rash MSK: FROM x 4 Neuro: CN 2-12 grossly intact, no new focal deficits Psych: calm - Constitutional Vitals: Temp Pulse Resp BP Pulse Ox 98.4 F 58 L 20 105/62 100 04/27/18 11:51 04/27/18 11:51 04/27/18 11:51 04/27/18 11:51 04/27/18 11:51 Results - Labs CBC & Chem 7: 04/27/18 04:33 04/26/18 04:48 Labs: Laboratory Last Values WBC 4.4 K/mm3 (4.5-11.0) L 04/27/18 04:33 RBC 3.57 M/mm3 (3.65-5.03) L 04/27/18 04:33 Hgb 7.4 gm/dl (10.1-14.3) L 04/27/18 04:33 Hct 24.4 % (30.3-42.9) L 04/27/18 04:33 MCV 68 fl (79-97) L 04/27/18 04:33 MCH 21 pg (28-32) L 04/27/18 04:33 MCHC 30 % (30-34) 04/27/18 04:33 RDW 29.7 % (13.2-15.2) H 04/27/18 04:33 Plt Count 464 K/mm3 (140-440) H 04/27/18 04:33 Lymph % (Auto) 28.7 % (13.4-35.0) 04/25/18 15:26 Harnett % (Auto) 5.0 % (0.0-7.3) 04/25/18 15:26 Eos % (Auto) 3.1 % (0.0-4.3) 04/25/18 15:26 Baso % (Auto) 1.5 % (0.0-1.8) 04/25/18 15:26 Lymph # 1.4 K/mm3 (1.2-5.4) 04/25/18 15:26 Harnett # 0.2 K/mm3 (0.0-0.8) 04/25/18 15:26 Eos # 0.1 K/mm3 (0.0-0.4) 04/25/18 15:26 Baso # 0.1 K/mm3 (0.0-0.1) 04/25/18 15:26 Add Manual Diff Complete 04/26/18 04:48 Total Counted 100 04/26/18 04:48 Seg Neutrophils % 61.7 % (40.0-70.0) 04/25/18 15:26 Seg Neuts % (Manual) 67.0 % (40.0-70.0) 04/26/18 04:48 Band Neutrophils % 1.0 % 04/26/18 04:48 Lymphocytes % (Manual) 26.0 % (13.4-35.0) 04/26/18 04:48 Reactive Lymphs % (Man) 0 % 04/26/18 04:48 Monocytes % (Manual) 4.0 % (0.0-7.3) 04/26/18 04:48 Eosinophils % (Manual) 0 % (0.0-4.3) 04/26/18 04:48 Basophils % (Manual) 2.0 % (0.0-1.8) H 04/26/18 04:48 Metamyelocytes % 0 % 04/26/18 04:48 Myelocytes % 0 % 04/26/18 04:48 Promyelocytes % 0 % 04/26/18 04:48 Blast Cells % 0 % 04/26/18 04:48 Nucleated RBC % Not Reportable 04/26/18 04:48 Seg Neutrophils # 3.0 K/mm3 (1.8-7.7) 04/25/18 15:26 Seg Neutrophils # Man 3.0 K/mm3 (1.8-7.7) 04/26/18 04:48 Band Neutrophils # 0.0 K/mm3 04/26/18 04:48 Lymphocytes # (Manual) 1.2 K/mm3 (1.2-5.4) 04/26/18 04:48 Abs React Lymphs (Man) 0.0 K/mm3 04/26/18 04:48 Monocytes # (Manual) 0.2 K/mm3 (0.0-0.8) 04/26/18 04:48 Eosinophils # (Manual) 0.0 K/mm3 (0.0-0.4) 04/26/18 04:48 Basophils # (Manual) 0.1 K/mm3 (0.0-0.1) 04/26/18 04:48 Metamyelocytes # 0.0 K/mm3 04/26/18 04:48 Myelocytes # 0.0 K/mm3 04/26/18 04:48 Promyelocytes # 0.0 K/mm3 04/26/18 04:48 Blast Cells # 0.0 K/mm3 04/26/18 04:48 WBC Morphology Not Reportable 04/26/18 04:48 Hypersegmented Neuts Not Reportable 04/26/18 04:48 Hyposegmented Neuts Not Reportable 04/26/18 04:48 Hypogranular Neuts Not Reportable 04/26/18 04:48 Smudge Cells Not Reportable 04/26/18 04:48 Toxic Granulation Not Reportable 04/26/18 04:48 Toxic Vacuolation Not Reportable 04/26/18 04:48 Dohle Bodies Not Reportable 04/26/18 04:48 Pelger-Huet Anomaly Not Reportable 04/26/18 04:48 Jethro Rods Not Reportable 04/26/18 04:48 Platelet Estimate Appears increased 04/26/18 04:48 Clumped Platelets Not Reportable 04/26/18 04:48 Plt Clumps, EDTA Not Reportable 04/26/18 04:48 Large Platelets Not Reportable 04/26/18 04:48 Giant Platelets Not Reportable 04/26/18 04:48 Platelet Satelliting Not Reportable 04/26/18 04:48 Plt Morphology Comment Not Reportable 04/26/18 04:48 RBC Morphology Not Reportable 04/26/18 04:48 Dimorphic RBCs Not Reportable 04/26/18 04:48 Polychromasia Not Reportable 04/26/18 04:48 Hypochromasia 2+ 04/26/18 04:48 Poikilocytosis 1+ 04/26/18 04:48 Anisocytosis 3+ 04/26/18 04:48 Microcytosis 1+ 04/26/18 04:48 Macrocytosis Not Reportable 04/26/18 04:48 Spherocytes Not Reportable 04/26/18 04:48 Pappenheimer Bodies Not Reportable 04/26/18 04:48 Sickle Cells Not Reportable 04/26/18 04:48 Target Cells Not Reportable 04/26/18 04:48 Tear Drop Cells Not Reportable 04/26/18 04:48 Ovalocytes 1+ 04/26/18 04:48 Helmet Cells Not Reportable 04/26/18 04:48 Heck-Crisman Bodies Not Reportable 04/26/18 04:48 [place] Rings Not Reportable 04/26/18 04:48 Rollingstone Cells Not Reportable 04/26/18 04:48 Bite Cells Not Reportable 04/26/18 04:48 Crenated Cell Not Reportable 04/26/18 04:48 Elliptocytes 1+ 04/26/18 04:48 Acanthocytes (Spur) Not Reportable 04/26/18 04:48 Rouleaux Not Reportable 04/26/18 04:48 Hemoglobin C Crystals Not Reportable 04/26/18 04:48 Schistocytes Not Reportable 04/26/18 04:48 Malaria parasites Not Reportable 04/26/18 04:48 Boni Bodies Not Reportable 04/26/18 04:48 Hem Pathologist Commnt No 04/26/18 04:48 PT 13.9 Sec. (12.2-14.9) 04/25/18 15:26 INR 1.01 (0.87-1.13) 04/25/18 15:26 APTT 32.8 Sec. (24.2-36.6) 04/25/18 15:26 Sodium 141 mmol/L (137-145) 04/26/18 04:48 Potassium 3.7 mmol/L (3.6-5.0) 04/26/18 04:48 Chloride 107.8 mmol/L (98-107) H 04/26/18 04:48 Carbon Dioxide 21 mmol/L (22-30) L 04/26/18 04:48 Anion Gap 16 mmol/L 04/26/18 04:48 BUN 10 mg/dL (7-17) 04/26/18 04:48 Creatinine 0.5 mg/dL (0.7-1.2) L 04/26/18 04:48 Estimated GFR > 60 ml/min 04/26/18 04:48 BUN/Creatinine Ratio 20 % 04/26/18 04:48 Glucose 87 mg/dL (65-100) 04/26/18 04:48 Hemoglobin A1c < 4.2 % (4-6) 04/26/18 03:32 Calcium 8.1 mg/dL (8.4-10.2) L 04/26/18 04:48 Iron 9 ug/dL (37-170) L 04/26/18 12:20 TIBC 384 mcg/dL (250-450) 04/26/18 12:20 Ferritin 4.7 ng/mL (13.0-400.0) L 04/26/18 12:20 Total Bilirubin 0.30 mg/dL (0.1-1.2) 04/26/18 04:48 AST 29 units/L (5-40) 04/26/18 04:48 ALT 14 units/L (7-56) 04/26/18 04:48 Alkaline Phosphatase 40 units/L (35-129) 04/26/18 04:48 Troponin T < 0.010 ng/mL (0.00-0.029) 04/26/18 10:21 Total Protein 5.7 g/dL (6.3-8.2) L D 04/26/18 04:48 Albumin 3.6 g/dL (3.9-5) L 04/26/18 04:48 Albumin/Globulin Ratio 1.7 % 04/26/18 04:48 Blood Type O POSITIVE 04/25/18 15:35 Antibody Screen Negative 04/25/18 15:35 Crossmatch See Detail 04/25/18 15:35
--- NOTE | 2018-04-27 17:34 | Discharge Summary ---
Providers - Providers Date of Admission: 04/25/18 16:37 Date of discharge: 04/27/18 Attending physician: KALI GARNETT 04/26/18 11:11 Consult to Physician [CONS] Routine Comment: Consulting Provider: MANSOOR DAVID Physician Instructions: Reason For Exam: severe iron deficiency Primary care physician: [facility], Hospitalization Condition: Stable Hospital course: Patient is 43 yo woman with a history of anemia due to uterine fibroids/menorrhagia with iron deficiency unable to tolerate iron pills (will take iron gummies otc), vitamin D deficiency who presented to [facility] with chest pains, lightheadedness and headaches. Symptoms resolved with 2 units of prbc and iv iron transfusion. Heme/onc Dr. David has seen. Patient has professor of apologetics appointment already. -Acute on chronic blood loss anemia most likely fibroids related, s/p 2 units -Severe Iron deficiency: consult Heme/onc, get iron studies==>start iron infusion x 1 -H/o Fibroids, left AMA last time I took care of her in august 2017, has not seen professor of apologetics: eap counselor on compliance -Chest pains most likely related to anemia: refused stress test, also refuse repeat troponin Disposition: DC-01 TO HOME OR SELFCARE Time spent for discharge: 34 minutes Core Measure Documentation - Palliative Care Palliative Care/ Comfort Measures: Not Applicable - Core Measures Any of the following diagnoses?: none - VTE Discharge Requirements Deep Vein Thrombosis/Pulmonary Embolism Present on Admission: No Has pt received <5 days of overlap therapy or INR<2.0: No Anticoagulant overlap therapy prescribed at discharge: No Contraindication No Overlap Therapy order at DC: Not Indicated Exam - Physical Exam Narrative exam: GEN: WDWN, NAD, Awake, Alert, Orientated HEENT: NCAT, EOMI, PERRL, OP Clear NECK: supple, no adenopathy, no thyromegaly, no JVD CVS/HEART: RRR, normal S1S2, pulses present bilaterally CHEST/LUNGS: CTA B, Symmetrical chest expansion, good air entry bilaterally GI/Abdomen: soft, NTND, good bowel sounds, no guarding or rebound /Bladder: no suprapubic tenderness, no CVA or paraspinal tenderness EXT/Skin: no c/c/e, no obvious rash MSK: FROM x 4 Neuro: CN 2-12 grossly intact, no new focal deficits Psych: calm - Constitutional Vitals: Temp Pulse Resp BP Pulse Ox 98.4 F 58 L 20 105/62 100 04/27/18 11:51 04/27/18 11:51 04/27/18 11:51 04/27/18 11:51 04/27/18 11:51 Plan Activity: other (no strenous activity unless cleared by pcp) Diet: regular Follow up with: HARRY KEENE MD [Primary Care Provider] - 7 Days MANSOOR DAVID MD [Staff Physician] - 7 Days
--- NOTE | 2018-04-28 09:02 | Event Note ---
Date: 04/27/18 [id number]
--- NOTE | 2018-04-28 12:55 | Consultation ---
HISTORY OF PRESENT ILLNESS: I saw the patient a 43-year-old female in the medical floor. The patient came to the hospital because of lightheadedness and headache for 2 days. The patient also had left-sided chest discomfort and throbbing sensation in the chest for 2 days. She was found to be anemic. The patient received blood transfusion 2 units and 1 dose of IV iron. I have been asked to evaluate the patient. The patient has been having slightly heavy cycles. The patient has history of fibroids and she has made an appointment with CREATIVE SERVICES DESIGNER end of this month. The patient is keen to go home. She is feeling better at this time. At this time; no headache, no visual disturbances. No ear discharge, no chest pain, no palpitation, no abdominal pain, no vomiting, no diarrhea, no dysuria. PAST MEDICAL HISTORY: As above. PAST SURGICAL HISTORY: Ankle surgery. SOCIAL HISTORY: No history of tobacco or alcohol usage. Works at the [employer]. FAMILY HISTORY: Hypertension. MEDICATIONS: Include B12, multivitamin. PHYSICAL EXAMINATION: VITAL SIGNS: Temperature 98, pulse 58, respirations 20, BP 105/62. HEENT: Pallor present. No icterus. NECK: No neck lymph nodes. HEART: S1, S2. LUNGS: Clear to auscultation. ABDOMEN: Soft. EXTREMITIES: No calf tenderness. NEUROLOGIC: Alert, awake, oriented. LABORATORY DATA: Had admission. Hemoglobin of 6.3, now white cell 4.4, hemoglobin 7.4, MCV 68, platelet 464, serum iron was 9, ferritin 4.7. RADIOLOGY: Chest x-ray was done. ASSESSMENT: Microcytic anemia, low iron studies, likely secondary to iron deficiency. PLAN: 1. I discussed with the patient regarding oral iron. The patient will buy [id number] oral iron. 2. I discussed with the patient regarding IV iron. The patient received one dose of IV iron and 2 units of blood transfusion, her symptoms have improved. She has appointment with CREATIVE SERVICES DESIGNER. She is keen to see her and then decide what the next step will be. I discussed with regarding outpatient, IV iron is an option if she prefers or she can continue to take with oral iron. 3. History of heavy cycles of fibroid. The patient will follow FINANCIAL ASSISTANT. 4. Symptoms of chest pain, dizziness secondary to anemia. They have improved. I discussed with Dr. Salazar regarding the patient's discharge. JOB# [id number] MEREDITH/CESIA
== END 2018-04-27 18:30 | disposition home or self-care (01) | DRG 760 ==
LOC: ED 14:13 → 3A 16:37
PROVIDERS: ADMIT Internal Medicine; ATTEND Internal Medicine
PROC: 30233N1 Transfusion of Nonautologous Red Blood Cells into Peripheral Vein, Percutaneous Approach (ICD-10-PCS; principal; 2018-04-25)
DX: D25.9 Leiomyoma of uterus, unspecified (principal); D62 Acute posthemorrhagic anemia; N92.0 Excessive and frequent menstruation with regular cycle; D50.9 Iron deficiency anemia, unspecified; Z91.013 Allergy to seafood; Z82.49 Family history of ischemic heart disease and other diseases of the circulatory system
CPT/HCPCS: 36415; 71046; 80053; 82728; 83036; 83550; 84484; 85007; 85014; 85018; 85025; 85027; 85610; 85730; 86850; 86900; 86901; 86920; 93005; 93010; 96374; 96375; 99291; G0378; J1885; J2405; J2916; J7030; J7040; P9016

== ENCOUNTER 2019-12-23 09:35 | Emergency (ER) | payer BC ==
[2019-12-23 11:17] LABS: Hematocrit 22.5 % (30.3-42.9); Hemoglobin 6.6 gm/dl (10.1-14.3); Mean Corpuscular HGB Conc 29 % (30-34); Platelet Count 312 K/mm3 (140-440)
[2019-12-23 11:21] LABS: Mean Corpuscular Volume 68 fl (79-97); Red Cell Distribution Width 22.7 % (13.2-15.2)
[2019-12-23 12:03] LABS: Bilirubin,Urine NEG (Negative); Blood,Urine NEG (Negative); Color,Urine Yellow (Yellow); Mucus,Urine FEW /HPF; Protein,Urine <15 mg/dL mg/dL (Negative); Urobilinogen,Urine < 2.0 mg/dL (<2.0); WBC,Urine < 1.0 /HPF (0.0-6.0)
[2019-12-23 12:05] LABS: HCG Qualitative,Urine Negative (Negative)
[2019-12-23] MEDS ORDERED: SODIUM CHLORIDE 0.9% 500 ML 500 ML IV ONE (12:17)
--- NOTE | 2019-12-23 13:41 | Emergency Department Report ---
- General Chief complaint: Weakness Stated complaint: HEADACHE, BACK PAIN, WEAK Time Seen by Provider: 12/23/19 11:09 Source: patient Mode of arrival: Ambulatory Limitations: No Limitations - History of Present Illness Initial comments: 44-year-old female with a past medical history of iron deficiency anemia and uterine fibroids presents to the hospital complaining of generalized weakness and right lower back pain x2 weeks. 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 Pain is intermittent and worse with movement. She denies dysuria, leg weakness, incontinence, or lower extremity numbness. Patient states that she was told this spring that she has significant anemia on her blood work. However, due to the pandemic she did not follow-up for repeat blood work and possible blood transfusion. States she has been taking her liquid iron pills. She states she has fibroids but her periods are not significantly heavy. Last menstrual cycle ended 4 days ago. No reports of melena or hematochezia. She also states on average she is eating 1 times a day because sometimes she just does not feel like eating. Severity scale (0 -10): 5 - Related Data Home Medications Medication Instructions Recorded Confirmed Last Taken RX: Cyanocobalamin [Vitamin B-12] 1,000 mcg PO DAILY 04/25/18 04/25/18 Unknown RX: Multivitamin/Iron/Folic Acid 1 each PO DAILY 04/25/18 04/25/18 Unknown [Centrum Women Tablet] Allergies Allergy/AdvReac Type Severity Reaction Status Date / Time shellfish derived Allergy Swelling Verified 04/25/18 14:14 ED Review of Systems ROS: Stated complaint: HEADACHE, BACK PAIN, WEAK Other details as noted in HPI Comment: All other systems reviewed and negative ED Past Medical Hx - Past Medical History Previous Medical History?: Yes Hx Congestive Heart Failure: No Hx Diabetes: No Hx Asthma: No Hx COPD: No Hx HIV: No Additional medical history: Anemia, Fibroids - Surgical History Past Surgical History?: Yes Additional Surgical History: Ankle - Social History Smoking Status: Former Smoker - Medications Home Medications: Home Medications Medication Instructions Recorded Confirmed Last Taken Type RX: Cyanocobalamin [Vitamin B-12] 1,000 mcg PO DAILY 04/25/18 04/25/18 Unknown History RX: Multivitamin/Iron/Folic Acid 1 each PO DAILY 04/25/18 04/25/18 Unknown History [Centrum Women Tablet] ED Physical Exam - General Limitations: No Limitations - Other Other exam information: General: No acute distress Head: Atraumatic Eyes: normal appearance ENT: Moist mucous membranes Neck: Normal appearance, no midline tenderness Chest: Clear to auscultation bilaterally CV: Regular rate and rhythm Abdomen: Soft, normal bowel sounds, nontender, nondistended, no rebound or guarding Back: Normal inspection nontender to palpation Extremity: Normal inspection, full range of motion Neuro: Alert O x 3, no facial asymmetry, speech clear, no gross motor sensory deficit Psych: Appropriate behavior Skin: No rash ED Course Vital Signs 12/23/19 12/23/19 12/23/19 09:56 12:00 13:47 Temperature 97.9 F 98.3 F Pulse Rate 69 69 69 Respiratory 13 15 Rate Blood Pressure 100/61 Blood Pressure 99/60 109/63 [Right] O2 Sat by Pulse 100 100 100 Oximetry 12/23/19 12/23/19 13:52 14:02 Temperature 98.2 F 98.2 F Pulse Rate 69 66 Respiratory 15 16 Rate Blood Pressure 101/53 111/47 Blood Pressure [Right] O2 Sat by Pulse 100 100 Oximetry ED Medical Decision Making - Lab Data Result diagrams: 12/23/19 10:20 Lab Results 12/23/19 12/23/19 12/23/19 Range/Units 10:20 10:21 11:35 WBC 3.7 L (4.5-11.0) K/mm3 RBC 3.30 L (3.65-5.03) M/mm3 Hgb 6.6 L (10.1-14.3) gm/dl Hct 22.5 L (30.3-42.9) % MCV 68 L (79-97) fl MCH 20 L (28-32) pg MCHC 29 L (30-34) % RDW 22.7 H (13.2-15.2) % Plt Count 312 (140-440) K/mm3 Urine Color Yellow (Yellow) Urine Turbidity Clear (Clear) Urine pH 5.0 (5.0-7.0) Ur Specific Carman 1.014 (1.003-1.030) Urine Protein <15 mg/dl (Negative) mg/dL Urine Glucose (UA) Neg (Negative) mg/dL Urine Ketones Neg (Negative) mg/dL Urine Blood Neg (Negative) Urine Nitrite Neg (Negative) Urine Bilirubin Neg (Negative) Urine Urobilinogen < 2.0 (<2.0) mg/dL Ur Leukocyte Esterase Neg (Negative) Urine WBC (Auto) < 1.0 (0.0-6.0) /HPF Urine RBC (Auto) 1.0 (0.0-6.0) /HPF U Epithel Cells (Auto) 1.0 (0-13.0) /HPF Urine Mucus Few /HPF Urine HCG, Qual Negative (Negative) Blood Type O POSITIVE Antibody Screen Negative Crossmatch See Detail - Medical Decision Making Received 1 unit of blood for symptomatic anemia with a hemoglobin of 6.6. She is not currently having vaginal bleeding nor does she endorse melena or hem atochezia. She has a history of chronic iron deficiency anemia. She is feeling better after 1 unit PRBCs and will be discharged to follow-up with her PMD with recommendation of hematology referral and to continue her oral iron supplements. Patient did not have any transfusion reaction while in the ED. Critical Care Time: No Critical care attestation.: If time is entered above; I have spent that time in minutes in the direct care of this critically ill patient, excluding procedure time. ED Disposition Clinical Impression: Iron deficiency anemia, Signs and symptoms of anemia Disposition: DC- TO HOME OR SELFCARE Is pt being admited?: No Does the pt Need Aspirin: No Condition: Stable Instructions: Preventing Iron Deficiency Anemia, Adult, Blood Transfusion, Adult, Care After Additional Instructions: Continue your current iron supplements. Follow-up closely with your primary care doctor intake the lab results to your doctor for follow-up. You may benefit for hematology referral to determine if iron infusions are indicated to prevent recurrent anemia requiring blood transfusion. Return if symptoms worsen as indicated by your discharge instructions. Referrals: NOAM SESAY MD [Primary Care Provider] - 3-5 Days Time of Disposition: 17:12
[2019-12-23 18:05] VITALS: BP 111/63
== END 2019-12-23 17:53 | disposition home or self-care (01) ==
LOC: ED 09:35
DX: D50.8 Other iron deficiency anemias (principal); Z87.891 Personal history of nicotine dependence; Z79.899 Other long term (current) drug therapy; Z91.013 Allergy to seafood
CPT/HCPCS: 36415; 36430; 81001; 81025; 85027; 86850; 86900; 86901; 86920; 96360; 96361; 99283; J7040; P9016

== ENCOUNTER 2020-12-28 06:41 | Observation (INO) | payer BC ==
[2020-12-28] MEDS ORDERED: METOCLOPRAMIDE 10 MG/2 ML INJ IV ONE (07:25)
[2020-12-28] MEDS ORDERED: diphenhydrAMINE 50 MG/ML VIAL IV ONE (07:25)
[2020-12-28] MEDS ORDERED: dexAMETHasone 20 MG/5 ML VIAL IV ONE (07:25)
[2020-12-28] MEDS ORDERED: SODIUM CHLORIDE 0.9% 1000 ML 1,000 ML IV ONE (07:25)
--- NOTE | 2020-12-28 07:36 | Emergency Department Report ---
ED General Adult HPI - General Chief complaint: Headache Stated complaint: headache Time Seen by Provider: 12/28/20 07:20 Source: patient Mode of arrival: Ambulatory Limitations: No Limitations - History of Present Illness Initial comments: 45-year-old -Malagasy female patient presents with complaints of sudden onset of severe generalized headache around 1:30 AM. Patient has a history of iron deficiency anemia and was seen here on 12/22/2020 with similar symptoms along with fatigue. She admits to history of migraines, however states this is the worst migraine she has ever experienced. She denies any head trauma, vision changes, numbness/tingling/weakness in her limbs, or difficulty with speech/ambulation. Headache gets worse with movement of the head per patient. She admits to photophobia. Patient was found to have anemia at last visit requiring a 1 unit blood transfusion and was discharged home. Iron deficiency due to fibroids and heavy vaginal bleeding per patient, however she denies any current vaginal bleeding. She denies any other past medical history. - Related Data Home Medications Medication Instructions Recorded Confirmed Last Taken Cyanocobalamin [Vitamin B-12] 1,000 mcg PO DAILY 04/25/18 04/25/18 Unknown Multivitamin/Iron/Folic Acid 1 each PO DAILY 04/25/18 04/25/18 Unknown [Centrum Women Tablet] Allergies Allergy/AdvReac Type Severity Reaction Status Date / Time shellfish derived Allergy Swelling Verified 04/25/18 14:14 ED Review of Systems ROS: Stated complaint: headache Other details as noted in HPI Constitutional: denies: chills, fever, malaise, weakness Respiratory: denies: shortness of breath Cardiovascular: denies: chest pain Gastrointestinal: nausea. denies: abdominal pain Musculoskeletal: denies: back pain Skin: denies: change in color Neurological: denies: numbness, paresthesias ED Past Medical Hx - Past Medical History Hx Congestive Heart Failure: No Hx Diabetes: No Hx Asthma: No Hx COPD: No Hx HIV: No Additional medical history: Anemia, Fibroids - Surgical History Additional Surgical History: Ankle - Social History Smoking Status: Former Smoker - Medications Home Medications: Home Medications Medication Instructions Recorded Confirmed Last Taken Type Cyanocobalamin [Vitamin B-12] 1,000 mcg PO DAILY 04/25/18 04/25/18 Unknown History Multivitamin/Iron/Folic Acid 1 each PO DAILY 04/25/18 04/25/18 Unknown History [Centrum Women Tablet] ED Physical Exam - General Limitations: No Limitations General appearance: alert, in no apparent distress - Head Head exam: Present: atraumatic, normocephalic - Eye Eye exam: Present: normal appearance - Respiratory Respiratory exam: Present: normal lung sounds bilaterally. Absent: respiratory distress - Cardiovascular Cardiovascular Exam: Present: regular rate, normal rhythm - Neurological Exam Neurological exam: Present: alert, oriented X3, CN II-XII intact, normal gait. Absent: motor sensory deficit - Expanded Neurological Exam Expanded Cerebellar function: Finger to Nose: Normal, Romberg: Normal Sensory exam: Upper Extremity Light Touch: Normal, Lower Extremity Light Touch: Normal - Psychiatric Psychiatric exam: Present: normal affect, normal mood - Skin Skin exam: Present: warm, dry, intact, normal color. Absent: rash ED Course Vital Signs 12/28/20 12/28/20 12/28/20 06:43 08:17 08:46 Temperature 98.9 F Pulse Rate 76 71 Respiratory 18 18 16 Rate Blood Pressure 111/73 103/51 [Right] O2 Sat by Pulse 100 93 Oximetry - Reevaluation(s) Reevaluation #1: 12/28/20 07:28 CT contacted and informed to expedite CT head given severity of headache ED Medical Decision Making - Lab Data Result diagrams: 12/28/20 07:56 12/28/20 07:22 Lab Results 12/28/20 12/28/20 12/28/20 Range/Units 07:22 07:22 07:56 WBC 8.2 (4.5-11.0) K/mm3 RBC 2.09 L (3.65-5.03) M/mm3 Hgb 3.8 L* (10.1-14.3) gm/dl Hct 14.0 L* (30.3-42.9) % MCV 67 L (79-97) fl MCH 18 L (28-32) pg MCHC 27 L (30-34) % RDW 32.6 H (13.2-15.2) % Plt Count 719 H (140-440) K/mm3 Add Manual Diff Complete Total Counted 100 Seg Neuts % (Manual) 84.0 H (40.0-70.0) % Lymphocytes % (Manual) 13.0 L (13.4-35.0) % Monocytes % (Manual) 2.0 (0.0-7.3) % Basophils % (Manual) 1.0 (0.0-1.8) % Nucleated RBC % Not Reportable Seg Neutrophils # Man 6.9 (1.8-7.7) K/mm3 Band Neutrophils # 0.0 K/mm3 Lymphocytes # (Manual) 1.1 L (1.2-5.4) K/mm3 Abs React Lymphs (Man) 0.0 K/mm3 Monocytes # (Manual) 0.2 (0.0-0.8) K/mm3 Eosinophils # (Manual) 0.0 (0.0-0.4) K/mm3 Basophils # (Manual) 0.1 (0.0-0.1) K/mm3 Metamyelocytes # 0.0 K/mm3 Myelocytes # 0.0 K/mm3 Promyelocytes # 0.0 K/mm3 Blast Cells # 0.0 K/mm3 WBC Morphology Not Reportable Hypersegmented Neuts Not Reportable Hyposegmented Neuts Not Reportable Hypogranular Neuts Not Reportable Smudge Cells Not Reportable Toxic Granulation Not Reportable Toxic Vacuolation Not Reportable Dohle Bodies Not Reportable Pelger-Huet Anomaly Not Reportable Jethro Rods Not Reportable Platelet Estimate Consistent w auto Clumped Platelets Not Reportable Plt Clumps, EDTA Not Reportable Large Platelets Not Reportable Giant Platelets Not Reportable Platelet Satelliting Not Reportable Plt Morphology Comment Not Reportable RBC Morphology Not Reportable Dimorphic RBCs Not Reportable Polychromasia Not Reportable Hypochromasia 2+ Poikilocytosis 2+ Anisocytosis 3+ Microcytosis 1+ Macrocytosis Not Reportable Spherocytes Not Reportable Pappenheimer Bodies Not Reportable Sickle Cells Not Reportable Target Cells Not Reportable Tear Drop Cells 1+ Ovalocytes Few Helmet Cells Not Reportable Heck-[place] Bodies Not Reportable [place] Rings Not Reportable Isaias Cells Not Reportable Bite Cells Not Reportable Crenated Cell Not Reportable Elliptocytes Few Acanthocytes (Spur) Not Reportable Rouleaux Not Reportable Hemoglobin C Crystals Not Reportable Schistocytes Not Reportable Malaria parasites Not Reportable Boni Bodies Not Reportable Hem Pathologist Commnt No Sodium 137 (137-145) mmol/L Potassium 4.1 (3.6-5.0) mmol/L Chloride 104.7 (98-107) mmol/L Carbon Dioxide 20 L (22-30) mmol/L Anion Gap 16 mmol/L BUN 7 (7-17) mg/dL Creatinine 0.4 L (0.6-1.2) mg/dL Estimated GFR > 60 ml/min BUN/Creatinine Ratio 18 % Glucose 121 H (65-100) mg/dL Calcium 8.6 (8.4-10.2) mg/dL Total Bilirubin 0.30 (0.1-1.2) mg/dL AST 39 (5-40) units/L ALT 12 (7-56) units/L Alkaline Phosphatase 61 (35-129) units/L Total Protein 6.9 (6.3-8.2) g/dL Albumin 3.8 L (3.9-5) g/dL Albumin/Globulin Ratio 1.2 % TSH 0.804 (0.270-4.200) mlU/mL - Medical Decision Making 45-year-old -Malagasy female patient presents with complaints of sudden onset of severe generalized headache around 1:30 AM. Patient has a history of iron deficiency anemia and was seen here on 12/22/2020 with similar symptoms along with fatigue. She admits to history of migraines, however states this is the worst migraine she has ever experienced. She denies any head trauma, vision changes, numbness/tingling/weakness in her limbs, or difficulty with speec h/ambulation. Headache gets worse with movement of the head per patient. She admits to photophobia. Patient was found to have anemia at last visit requiring a 1 unit blood transfusion and was discharged home. Iron deficiency due to fibroids and heavy vaginal bleeding per patient, however she denies any current vaginal bleeding. She denies any other past medical history. Hemoglobin noted to be 3.8 today. Discussed patient with Dr. Arvizu, recommends admission and 2 units of PRBCs. Patient accepted for admission to hospital via Dr. Amanda Critical care attestation.: If time is entered above; I have spent that time in minutes in the direct care of this critically ill patient, excluding procedure time. ED Disposition Clinical Impression: Severe anemia Disposition: 09 ADMITTED INPATIENT Is pt being admited?: Yes Condition: Stable
[2020-12-28] MEDS ORDERED: oxyCODONE /ACETAMINOPHEN 5-325MG TAB PO ONE (08:10)
--- NOTE | 2020-12-28 08:10 | Cat Scan Report ---
CT BRAIN: 12/28/2020 INDICATION / CLINICAL INFORMATION: acute severe headache. COMPARISON: None available. FINDINGS: BRAIN/INTRACRANIAL STRUCTURES: Unenhanced CT images of the brain demonstrate no evidence of acute int racranial abnormality. Ventricles and sulci are normal in size and shape. There is no evidence of acute ischemic injury, hemorrhage, or mass. There are no abnormal extra-axial fluid collections. EXTRACRANIAL STRUCTURES: Unremarkable. IMPRESSION: No acute abnormality. Negative unenhanced CT of the brain. All CT scans at this location are performed using dose reduction to ALARA by means of automated expos ure control. Signer Name: Danilo Albrecht MD Signed: 12/28/2020 8:06 AM Workstation Name: [id number]
[2020-12-28 08:24] LABS: Mean Corpuscular HGB Conc 27 % (30-34); Platelet Count 719 K/mm3 (140-440); Red Blood Count 2.09 M/mm3 (3.65-5.03)
[2020-12-28 08:27] LABS: Hemoglobin 3.8 gm/dl (10.1-14.3); Mean Corpuscular Volume 67 fl (79-97); Red Cell Distribution Width 32.6 % (13.2-15.2)
[2020-12-28 08:47] LABS: Alanine Aminotransferase 12 units/L (7-56); Albumin 3.8 g/dL (3.9-5); BUN/Creatinine Ratio 18; Blood Urea Nitrogen 7 mg/dL (7-17); Calcium 8.6 mg/dL (8.4-10.2); Hemolysis Index 49
[2020-12-28] MEDS ORDERED: LORazepam 2 MG/ML VIAL ONE ×2 (08:47→09:00)
[2020-12-28] MEDS ORDERED: SODIUM CHLORIDE 0.9% 500 ML 500 ML IV ONE (08:53)
[2020-12-28 09:12] LABS: Total Cells Counted 100
[2020-12-28 09:13] LABS: Anisocytosis 3+; Hypochromasia 2+; Ovalocytes Few; Poikilocytosis 2+; Tear Drop Cells 1+
[2020-12-28 09:14] LABS: Platelet Estimate Consistent w Auto
[2020-12-28] MEDS ORDERED: IBUPROFEN 800 MG TAB PO PRN (12:27)
--- NOTE | 2020-12-28 12:28 | History and Physical Report ---
History of Present Illness Date of examination: 12/28/20 Date of admission: 12/28/20 09:16 History of present illness: 45-year-old -[place]aur[place] female patient with PMH of migraine and chronic anemia from fibroids for which she is being followed by her metal model maker presents with complaints of sudden onset of severe generalized headache around 1:30 AM. She admits to history of migraines, however states this is the worst migraine she has ever experienced. She typically takes Tylenol for headaches but occasionally has to go to her family doctor for additional treatment. She denies any head trauma, vision changes, numbness/tingling/weakness in her limbs, or difficulty with speech/ambulation. Headache gets worse with movement of the head per patient. She admits to photophobia. Patient has a history of iron deficiency anemia and was seen here on 12/22/2020 with similar symptoms along with fatigue.Patient was found to have anemia with hemoglobin 6.8 at last visit requiring a 1 unit blood transfusion and was discharged home. Iron deficiency due to fibroids and heavy vaginal bleeding per patient, however she denies any current vaginal bleeding. LMP was more than a week ago. Hemoglobin today is unexpectedly low, 3.8. Chemistries unremarkable. CT head unremarkable. Vital signs stable. Patient denies hematochezia or history of GI bleed. She does take oral iron as well as vitamins daily. Ordered units of PRBCs. Patient will be discharged after PRBC transfusion for follow-up at [facility]. Review of systems: 13 systems reviewed and only the pertinent findings are as stated ER. Patient is weight loss. No fever or chills. No syncopal episodes. Denies chest pains or palpitations. She does feel fatigued but no significant dyspnea. Denies abdominal pain. Denies vaginal discharge. Denies dysuria and hematuria. PMH: Migraine and anemia from fibroids. She denies any other past medical history. Social history: She works. Her mother recently moved to live with her. She drinks alcohol socially. She denies illicit recreational drug use. Family history: Noncontributory. Home Meds: Iron twice daily and vitamins. Medications and Allergies Allergies Allergy/AdvReac Type Severity Reaction Status Date / Time shellfish derived Allergy Swelling Verified 04/25/18 14:14 Home Medications Medication Instructions Recorded Confirmed Last Taken Type Cyanocobalamin [Vitamin B-12] 1,000 mcg PO DAILY 04/25/18 04/25/18 Unknown History Multivitamin/Iron/Folic Acid 1 each PO DAILY 04/25/18 04/25/18 Unknown History [Centrum Women Tablet] Exam - Constitutional Vitals: Temp Pulse Resp BP Pulse Ox 98.4 F 82 16 116/56 99 12/28/20 11:50 12/28/20 11:50 12/28/20 11:50 12/28/20 11:50 12/28/20 11:50 General appearance: Present: no acute distress, well-nourished - EENT Eyes: Present: PERRL, EOM intact. Absent: scleral icterus ENT: clear oral mucosa - Neck Neck: Present: supple. Absent: masses or JVD - Respiratory Respiratory effort: normal Respiratory: bilateral: CTA - Cardiovascular Rhythm: regular - Extremities Extremities: No edema - Abdominal General gastrointestinal: Present: soft, non-tender, normal bowel sounds, other (Large nodular uterus likely from fibroids, nontender) Female genitourinary: Present: deferred - Rectal Rectal Exam: deferred - Integumentary Integumentary: Absent: rash - Musculoskeletal Musculoskeletal: strength equal bilaterally - Psychiatric Psychiatric: appropriate mood/affect - Neurologic Neurologic: no focal deficits, moves all extremities Results - Labs CBC & Chem 7: 12/28/20 07:56 12/28/20 07:22 Labs: Laboratory Last Values WBC 8.2 K/mm3 (4.5-11.0) 12/28/20 07:56 RBC 2.09 M/mm3 (3.65-5.03) L 12/28/20 07:56 Hgb 3.8 gm/dl (10.1-14.3) L* 12/28/20 07:56 Hct 14.0 % (30.3-42.9) L* 12/28/20 07:56 MCV 67 fl (79-97) L 12/28/20 07:56 MCH 18 pg (28-32) L 12/28/20 07:56 MCHC 27 % (30-34) L 12/28/20 07:56 RDW 32.6 % (13.2-15.2) H 12/28/20 07:56 Plt Count 719 K/mm3 (140-440) H 12/28/20 07:56 Add Manual Diff Complete 12/28/20 07:56 Total Counted 100 12/28/20 07:56 Seg Neuts % (Manual) 84.0 % (40.0-70.0) H 12/28/20 07:56 Lymphocytes % (Manual) 13.0 % (13.4-35.0) L 12/28/20 07:56 Monocytes % (Manual) 2.0 % (0.0-7.3) 12/28/20 07:56 Basophils % (Manual) 1.0 % (0.0-1.8) 12/28/20 07:56 Nucleated RBC % Not Reportable 12/28/20 07:56 Seg Neutrophils # Man 6.9 K/mm3 (1.8-7.7) 12/28/20 07:56 Band Neutrophils # 0.0 K/mm3 12/28/20 07:56 Lymphocytes # (Manual) 1.1 K/mm3 (1.2-5.4) L 12/28/20 07:56 Abs React Lymphs (Man) 0.0 K/mm3 12/28/20 07:56 Monocytes # (Manual) 0.2 K/mm3 (0.0-0.8) 12/28/20 07:56 Eosinophils # (Manual) 0.0 K/mm3 (0.0-0.4) 12/28/20 07:56 Basophils # (Manual) 0.1 K/mm3 (0.0-0.1) 12/28/20 07:56 Metamyelocytes # 0.0 K/mm3 12/28/20 07:56 Myelocytes # 0.0 K/mm3 12/28/20 07:56 Promyelocytes # 0.0 K/mm3 12/28/20 07:56 Blast Cells # 0.0 K/mm3 12/28/20 07:56 WBC Morphology Not Reportable 12/28/20 07:56 Hypersegmented Neuts Not Reportable 12/28/20 07:56 Hyposegmented Neuts Not Reportable 12/28/20 07:56 Hypogranular Neuts Not Reportable 12/28/20 07:56 Smudge Cells Not Reportable 12/28/20 07:56 Toxic Granulation Not Reportable 12/28/20 07:56 Toxic Vacuolation Not Reportable 12/28/20 07:56 Dohle Bodies Not Reportable 12/28/20 07:56 Pelger-Huet Anomaly Not Reportable 12/28/20 07:56 Jethro Rods Not Reportable 12/28/20 07:56 Platelet Estimate Consistent w auto 12/28/20 07:56 Clumped Platelets Not Reportable 12/28/20 07:56 Plt Clumps, EDTA Not Reportable 12/28/20 07:56 Large Platelets Not Reportable 12/28/20 07:56 Giant Platelets Not Reportable 12/28/20 07:56 Platelet Satelliting Not Reportable 12/28/20 07:56 Plt Morphology Comment Not Reportable 12/28/20 07:56 RBC Morphology Not Reportable 12/28/20 07:56 Dimorphic RBCs Not Reportable 12/28/20 07:56 Polychromasia Not Reportable 12/28/20 07:56 Hypochromasia 2+ 12/28/20 07:56 Poikilocytosis 2+ 12/28/20 07:56 Anisocytosis 3+ 12/28/20 07:56 Microcytosis 1+ 12/28/20 07:56 Macrocytosis Not Reportable 12/28/20 07:56 Spherocytes Not Reportable 12/28/20 07:56 Pappenheimer Bodies Not Reportable 12/28/20 07:56 Sickle Cells Not Reportable 12/28/20 07:56 Target Cells Not Reportable 12/28/20 07:56 Tear Drop Cells 1+ 12/28/20 07:56 Ovalocytes Few 12/28/20 07:56 Helmet Cells Not Reportable 12/28/20 07:56 Heck-[place] Bodies Not Reportable 12/28/20 07:56 [place] Rings Not Reportable 12/28/20 07:56 Isaias Cells Not Reportable 12/28/20 07:56 Bite Cells Not Reportable 12/28/20 07:56 Crenated Cell Not Reportable 12/28/20 07:56 Elliptocytes Few 12/28/20 07:56 Acanthocytes (Spur) Not Reportable 12/28/20 07:56 Rouleaux Not Reportable 12/28/20 07:56 Hemoglobin C Crystals Not Reportable 12/28/20 07:56 Schistocytes Not Reportable 12/28/20 07:56 Malaria parasites Not Reportable 12/28/20 07:56 Boni Bodies Not Reportable 12/28/20 07:56 Hem Pathologist Commnt No 12/28/20 07:56 Sodium 137 mmol/L (137-145) 12/28/20 07:22 Potassium 4.1 mmol/L (3.6-5.0) 12/28/20 07:22 Chloride 104.7 mmol/L (98-107) 12/28/20 07:22 Carbon Dioxide 20 mmol/L (22-30) L 12/28/20 07:22 Anion Gap 16 mmol/L 12/28/20 07:22 BUN 7 mg/dL (7-17) 12/28/20 07:22 Creatinine 0.4 mg/dL (0.6-1.2) L 12/28/20 07:22 Estimated GFR > 60 ml/min 12/28/20 07:22 BUN/Creatinine Ratio 18 % 12/28/20 07:22 Glucose 121 mg/dL (65-100) H 12/28/20 07:22 Calcium 8.6 mg/dL (8.4-10.2) 12/28/20 07:22 Total Bilirubin 0.30 mg/dL (0.1-1.2) 12/28/20 07:22 AST 39 units/L (5-40) 12/28/20 07:22 ALT 12 units/L (7-56) 12/28/20 07:22 Alkaline Phosphatase 61 units/L (35-129) 12/28/20 07:22 Total Protein 6.9 g/dL (6.3-8.2) 12/28/20 07:22 Albumin 3.8 g/dL (3.9-5) L 12/28/20 07:22 Albumin/Globulin Ratio 1.2 % 12/28/20 07:22 TSH 0.804 mlU/mL (0.270-4.200) 12/28/20 07:22 Blood Type O POSITIVE 12/28/20 09:34 Antibody Screen Negative 12/28/20 09:34 Crossmatch See Detail 12/28/20 09:34 Assessment and Plan Assessment and plan: Assessment: Acute migraine attack with history of chronic migraine headaches Severe microcytic anemia with history of chronic anemia from fibroids and heavy menstrual loss Plan: Toradol 30 mg x 1 dose for migraine headache PRBC x2 units as already ordered in ED Patient will be discharged home after PRBC transfusion for follow-up with AUTOMATIC TELLER MACHINE SERVICER with regard to fibroid management. She will continue oral iron therapy as well as vitamins Discussed with the patient and the nursing staff.
[2020-12-28] MEDS ORDERED: KETOROLAC 30 MG/1 ML INJ IV ONE (14:30)
[2020-12-28 16:00] LABS: Amorphous Crystals,Urine Few; Bacteria,Urine 1+ /HPF (Negative); Bilirubin,Urine NEG (Negative); Blood,Urine NEG (Negative); Color,Urine Yellow (Yellow); Mucus,Urine FEW /HPF; Urobilinogen,Urine < 2.0 mg/dL (<2.0)
[2020-12-28 17:00] VITALS: BP 107/64
[2020-12-28 18:09] LABS: Hematocrit 23.9 % (30.3-42.9); Hemoglobin 7.2 gm/dl (10.1-14.3)
--- NOTE | 2020-12-28 18:41 | Discharge Summary ---
Providers - Providers Date of Admission: 12/28/20 09:16 Attending physician: MABEL ALVARADO MD Primary care physician: PLATE STRAIGHTENER Hospitalization Condition: Stable Hospital course: 45-year-old -[place]ymra[place] female patient with PMH of migraine and chronic anemia from fibroids for which she is being followed by her ward maid presents with complaints of sudden onset of severe generalized headache around 1:30 AM. She admits to history of migraines, however states this is the worst migraine she has ever experienced. She typically takes Tylenol for headaches but occasionally has to go to her family doctor for additional treatment. She denies any head trauma, vision changes, numbness/tingling/weakness in her limbs, or difficulty with speech/ambulation. Headache gets worse with movement of the head per patient. She admits to photophobia. Patient has a history of iron deficiency anemia and was seen here on 12/22/2020 with similar symptoms along with fatigue.Patient was found to have anemia with hemoglobin 6.8 at last visit requiring a 1 unit blood transfusion and was discharged home. Iron deficiency due to fibroids and heavy vaginal bleeding per patient, however she denies any current vaginal bleeding. LMP was more than a week ago. Hemoglobin today is unexpectedly low, 3.8. Chemistries unremarkable. CT head unremarkable. Vital signs stable. Patient denies hematochezia or history of GI bleed. She does take oral iron as well as vitamins daily. Ordered 2 units of PRBCs and hemoglobin improved to 7.2. Patient was discharged to home after PRBC transf usion for follow-up with INTERNET PROJECT MANAGER for further management of fibroids/heavy menstrual loss. Discharge diagnoses Acute migraine attack with history of chronic migraine headaches Severe microcytic anemia with history of chronic anemia from fibroids and heavy menstrual loss Disposition: 01 HOME / SELF CARE / HOMELESS Final Discharge Diagnosis (Prints w/discharge instructions): Severe microcytic anemia needing PRBC x2 units transfusion. History of chronic anemia from heavy menstrual losses. Uterine fibroids. Acute migraine attack with history of chronic migraine headaches Core Measure Documentation - Palliative Care Palliative Care/ Comfort Measures: Not Applicable - Core Measures Any of the following diagnoses?: none Exam - Constitutional Vitals: Temp Pulse Resp BP Pulse Ox 98.6 F 74 18 107/64 98 12/28/20 16:58 12/28/20 14:50 12/28/20 16:58 12/28/20 16:58 12/28/20 17:29 General appearance: Present: no acute distress - EENT Eyes: Absent: scleral icterus - Neck Neck: Present: supple - Respiratory Respiratory effort: normal Respiratory: bilateral: CTA - Cardiovascular Rhythm: regular - Extremities Extremities: No edema - Abdominal General gastrointestinal: Present: soft, non-tender, distended (With fibroids) - Musculoskeletal Musculoskeletal: strength equal bilaterally - Psychiatric Psychiatric: appropriate mood/affect Plan Activity: advance as tolerated Diet: regular Additional Instructions: See your INTERNET PROJECT MANAGER in a week for follow-up Follow up with: PRIMARY CARE, [Primary Care Provider] - 3-5 Days Prescriptions: Ferrous Sulfate [Ferrous Sulfate 324 MG] 324 mg PO BID #60 tablet.
== END 2020-12-28 20:17 | disposition home or self-care (01) ==
LOC: ED 06:41 → 3A 09:16
PROVIDERS: ADMIT Internal Medicine; ATTEND Internal Medicine
DX: G43.909 Migraine, unspecified, not intractable, without status migrainosus (principal); D50.0 Iron deficiency anemia secondary to blood loss (chronic); D25.9 Leiomyoma of uterus, unspecified; R53.83 Other fatigue; Z87.891 Personal history of nicotine dependence; Z79.899 Other long term (current) drug therapy; Z98.890 Other specified postprocedural states
CPT/HCPCS: 36415; 36430; 70450; 80053; 81001; 84443; 85014; 85018; 85025; 86850; 86900; 86901; 86920; 87086; 96361; 96374; 96375; 99284; G0378; J1100; J1200; J1885; J2765; J7030; P9016; 85007; Q0162; J2060

== ENCOUNTER 2021-08-22 10:30 | Observation (INO) | payer BC ==
--- NOTE | 2021-08-22 14:59 | Vascular Lab Report ---
DUPLEX DOPPLER LOWER EXTREMITY VEINS, RIGHT INDICATION / CLINICAL INFORMATION: right leg pain with numbness. TECHNIQUE: Duplex doppler imaging was performed through the veins of the right lower extremity using venous compression and other maneuvers. COMPARISON: None available. FINDINGS: RIGHT COMMON FEMORAL VEIN: Negative. RIGHT FEMORAL VEIN: Negative. RIGHT POPLITEAL VEIN: Negative. RIGHT CALF VEINS: Negative. ADDITIONAL FINDINGS: None. IMPRESSION: 1. No sonographic evidence for DVT in the right lower extremity. Signer Name: Jose E Nguyễn MD Signed: 08/22/2021 2:54 PM Workstation Name: [id number]
[2021-08-22 18:00] LABS: Mean Corpuscular HGB Conc 29 % (30-34); Platelet Count 639 K/mm3 (140-440); Red Blood Count 2.37 M/mm3 (3.65-5.03)
[2021-08-22 18:04] LABS: Hematocrit 14.7 % (30.3-42.9); Hemoglobin 4.3 gm/dl (10.1-14.3); Mean Corpuscular Volume 62 fl (79-97); Red Cell Distribution Width 29.1 % (13.2-15.2)
[2021-08-22 18:20] LABS: Alanine Aminotransferase 12 units/L (7-56); Albumin 4.2 g/dL (3.9-5); Blood Urea Nitrogen 7 mg/dL (7-17); Hemolysis Index 0
[2021-08-22] MEDS ORDERED: SODIUM CHLORIDE 0.9% 500 ML 500 ML IV ONE (18:22)
[2021-08-22] MEDS ORDERED: SODIUM CHLORIDE 0.9% 1000 ML 1,000 ML IV ONE ×2 (18:22→20:12)
[2021-08-22 18:23] LABS: BUN/Creatinine Ratio 14
--- NOTE | 2021-08-22 19:16 | Emergency Department Report ---
ED General Adult HPI - General Chief complaint: Extremity Problem,Nontraumatic Stated complaint: WEAK/RT LEG NUMB Time Seen by Provider: 08/22/21 13:16 Source: patient Mode of arrival: Ambulatory Limitations: No Limitations - History of Present Illness Initial comments: This is a 46-year-old female nontoxic, well nourished in appearance, no acute signs of distress presents to the ED with c/o of generalized weakness and right leg numbness and pain times several days. Patient stated she just finished her menstrual cycle at that describes as heavy. HX of fibroids. Otherwise patient denies any other symptoms or complaints. Denies any chest pain, shortness of breath, fever, chills, nausea, vomiting, headache or stiff neck. Denies any radiation of pain. Denies any drug allergies besides shellfish. -: days(s) Location: lower extremity Radiation: non-radiation Severity scale (0 -10): 3 Quality: aching Consistency: intermittent Improves with: none Worsens with: none Associated Symptoms: weakness. denies: confusion, chest pain, cough, diaphoresis, fever/chills, headaches, loss of appetite, malaise, nausea/vomiting, rash, seizure, shortness of breath, syncope - Related Data Home Medications Medication Instructions Recorded Confirmed Last Taken Cyanocobalamin [Vitamin B-12] 1,000 mcg PO DAILY 04/25/18 04/25/18 Unknown Multivitamin/Iron/Folic Acid 1 each PO DAILY 04/25/18 04/25/18 Unknown [Centrum Women Tablet] Previous Rx's Medication Instructions Recorded Last Taken Type Ferrous Sulfate [Ferrous Sulfate 324 mg PO BID #60 tablet. 12/28/20 Unknown Rx 324 MG] Allergies Allergy/AdvReac Type Severity Reaction Status Date / Time shellfish derived Allergy Swelling Verified 04/25/18 14:14 ED Review of Systems ROS: Stated complaint: WEAK/RT LEG NUMB Other details as noted in HPI Comment: All other systems reviewed and negative Constitutional: denies: chills, fever Eyes: denies: eye pain, eye discharge, vision change ENT: denies: ear pain, throat pain Respiratory: denies: cough, shortness of breath, wheezing Cardiovascular: denies: chest pain, palpitations Endocrine: no symptoms reported Gastrointestinal: denies: abdominal pain, nausea, diarrhea Genitourinary: denies: urgency, dysuria, discharge Musculoskeletal: denies: back pain, joint swelling, arthralgia Skin: denies: rash, lesions Neurological: weakness. denies: headache, numbness, paresthesias, confusion, abnormal gait, vertigo Psychiatric: denies: anxiety, depression Hematological/Lymphatic: denies: easy bleeding, easy bruising ED Past Medical Hx - Past Medical History Hx Congestive Heart Failure: No Hx Diabetes: No Hx Asthma: No Hx COPD: No Hx HIV: No Additional medical history: Anemia, Fibroids - Surgical History Additional Surgical History: Ankle - Social History Smoking Status: Never Smoker - Medications Home Medications: Home Medications Medication Instructions Recorded Confirmed Last Taken Type Cyanocobalamin [Vitamin B-12] 1,000 mcg PO DAILY 04/25/18 04/25/18 Unknown History Multivitamin/Iron/Folic Acid 1 each PO DAILY 04/25/18 04/25/18 Unknown History [Centrum Women Tablet] Ferrous Sulfate [Ferrous Sulfate 324 mg PO BID #60 tablet. 12/28/20 Unknown Rx 324 MG] ED Physical Exam - General Limitations: No Limitations General appearance: alert, in no apparent distress - Head Head exam: Present: atraumatic, normocephalic - Eye Eye exam: Present: normal appearance, PERRL, EOMI Pupils: Present: normal accommodation - ENT ENT exam: Present: normal exam - Neck Neck exam: Present: normal inspection, full ROM. Absent: tenderness, meningismus, lymphadenopathy - Respiratory Respiratory exam: Present: normal lung sounds bilaterally. Absent: respiratory distress, wheezes, rales, rhonchi, stridor, chest wall tenderness, accessory muscle use, decreased breath sounds, prolonged expiratory - Cardiovascular Cardiovascular Exam: Present: regular rate, normal rhythm, normal heart sounds. Absent: bradycardia, tachycardia, irregular rhythm, systolic murmur, diastolic murmur, rubs, gallop - GI/Abdominal GI/Abdominal exam: Present: soft, normal bowel sounds. Absent: distended, t enderness, guarding, rebound, rigid, diminished bowel sounds - Extremities Exam Extremities exam: Present: normal inspection, full ROM, tenderness, normal capillary refill. Absent: pedal edema, joint swelling, calf tenderness - Expanded Lower Extremity Exam Right Hip exam: Present: normal inspection, full ROM. Absent: tenderness, swelling Upper Leg exam: Present: normal inspection, full ROM. Absent: tenderness, swelling Knee exam: Present: normal inspection, full ROM. Absent: tenderness, swelling Lower Leg exam: Present: normal inspection, full ROM, tenderness. Absent: swelling, abrasion, laceration, ecchymosis, deformity, crepidus, dislocation, erythema, palpable cord, Andrade's sign Ankle exam: Present: normal inspection, full ROM. Absent: tenderness, swelling Foot/Toe exam: Present: normal inspection, full ROM. Absent: tenderness, swelling Neuro vascular tendon exam: Present: no vascular compromise Gait: Positive: observed and normal 1 - pain here - Back Exam Back exam: Present: normal inspection, full ROM. Absent: tenderness, CVA tenderness (R), CVA tenderness (L), muscle spasm, paraspinal tenderness, vertebral tenderness, rash noted - Neurological Exam Neurological exam: Present: alert, oriented X3, normal gait - Expanded Neurological Exam Expanded Patient oriented to: Present: person, place, time Cranial nerves: EOM's Intact: Normal, Facial Sensation: Normal Cerebellar function: Finger to Nose: Normal Upper motor neuron: Pronator Drift: Normal, Sensory Extinction: Normal Motor strength exam: RUE: 5, LUE: 5, RLE: 5, LLE: 5 Best Eye Response ([place]): (4) open spontaneously Best Motor Response ([place]): (6) obeys commands Best Verbal Response ([place]): (5) oriented Jaqueline Total: 15 - Psychiatric Psychiatric exam: Present: normal affect, normal mood - Skin Skin exam: Present: warm, dry, intact, normal color. Absent: rash ED Course Vital Signs 08/22/21 08/22/21 08/22/21 10:51 20:09 20:11 Temperature 99.0 F 97.9 F Pulse Rate 81 67 Respiratory 14 16 Rate Blood Pressure 95/54 Blood Pressure 102/49 [Left] O2 Sat by Pulse 100 100 Oximetry - Reevaluation(s) Reevaluation #1: 08/22/21 19:14 Patient is speaking in full sentences with no signs of distress noted. - Consultations Consultation #1: 08/22/21 19:14 Patient has been consulted with Dr. Guerrero about patient history, physical exam, and labs and agrees to ED plan of care and admission. Consultation #2: 08/22/21 19:54 Patient has been consulted with Dr. Ford (OBGYN) about patient history, physical exam, and labs and accepts patient to services. ED Medical Decision Making - Lab Data Result diagrams: 08/22/21 17:40 08/22/21 17:40 Lab Results 08/22/21 08/22/21 08/22/21 Range/Units 17:40 17:40 18:48 WBC 4.7 (4.5-11.0) K/mm3 RBC 2.37 L (3.65-5.03) M/mm3 Hgb 4.3 L* (10.1-14.3) gm/dl Hct 14.7 L* (30.3-42.9) % MCV 62 L (79-97) fl MCH 18 L (28-32) pg MCHC 29 L (30-34) % RDW 29.1 H (13.2-15.2) % Plt Count 639 H (140-440) K/mm3 Add Manual Diff Complete Total Counted 100 Seg Neuts % (Manual) 60.0 (40.0-70.0) % Band Neutrophils % 0 % Lymphocytes % (Manual) 34.0 (13.4-35.0) % Reactive Lymphs % (Man) 0 % Monocytes % (Manual) 3.0 (0.0-7.3) % Eosinophils % (Manual) 3.0 (0.0-4.3) % Basophils % (Manual) 0 (0.0-1.8) % Metamyelocytes % 0 % Myelocytes % 0 % Promyelocytes % 0 % Blast Cells % 0 % Nucleated RBC % Not Reportable Seg Neutrophils # Man 2.8 (1.8-7.7) K/mm3 Band Neutrophils # 0.0 K/mm3 Lymphocytes # (Manual) 1.6 (1.2-5.4) K/mm3 Abs React Lymphs (Man) 0.0 K/mm3 Monocytes # (Manual) 0.1 (0.0-0.8) K/mm3 Eosinophils # (Manual) 0.1 (0.0-0.4) K/mm3 Basophils # (Manual) 0.0 (0.0-0.1) K/mm3 Metamyelocytes # 0.0 K/mm3 Myelocytes # 0.0 K/mm3 Promyelocytes # 0.0 K/mm3 Blast Cells # 0.0 K/mm3 WBC Morphology Not Reportable Hypersegmented Neuts Not Reportable Hyposegmented Neuts Not Reportable Hypogranular Neuts Not Reportable Smudge Cells Not Reportable Toxic Granulation Not Reportable Toxic Vacuolation Not Reportable Dohle Bodies Not Reportable Pelger-Huet Anomaly Not Reportable Jethro Rods Not Reportable Platelet Estimate Consistent w auto Clumped Platelets Not Reportable Plt Clumps, EDTA Not Reportable Large Platelets Not Reportable Giant Platelets Few Platelet Satelliting Not Reportable Plt Morphology Comment Not Reportable RBC Morphology Not Reportable Dimorphic RBCs Not Reportable Polychromasia Few Hypochromasia 2+ Poikilocytosis Not Reportable Anisocytosis 2+ Microcytosis 2+ Macrocytosis Not Reportable Spherocytes Not Reportable Pappenheimer Bodies Not Reportable Sickle Cells Not Reportable Target Cells Not Reportable Tear Drop Cells Not Reportable Ovalocytes Not Reportable Helmet Cells Not Reportable [place] Bodies Not Reportable [place] Rings Not Reportable Isaias Cells Not Reportable Bite Cells Not Reportable Crenated Cell Not Reportable Elliptocytes Not Reportable Acanthocytes (Spur) Not Reportable Rouleaux Not Reportable Hemoglobin C Crystals Not Reportable Schistocytes Not Reportable Malaria parasites Not Reportable Boni Bodies Not Reportable Hem Pathologist Commnt No PT 15.1 H (12.2-14.9) Sec. INR 1.07 (0.87-1.13) APTT 22.0 L (24.2-36.6) Sec. Sodium 138 (137-145) mmol/L Potassium 4.1 (3.6-5.0) mmol/L Chloride 104.2 (98-107) mmol/L Carbon Dioxide 24 (22-30) mmol/L Anion Gap 14 mmol/L BUN 7 (7-17) mg/dL Creatinine 0.5 L (0.6-1.2) mg/dL Estimated GFR > 60 ml/min BUN/Creatinine Ratio 14 % Glucose 88 (65-100) mg/dL Calcium 9.0 (8.4-10.2) mg/dL Total Bilirubin 0.40 (0.1-1.2) mg/dL AST 18 (5-40) units/L ALT 12 (7-56) units/L Alkaline Phosphatase 70 (35-129) units/L Total Creatine Kinase 32 (30-135) units/L Total Protein 7.2 (6.3-8.2) g/dL Albumin 4.2 (3.9-5) g/dL Albumin/Globulin Ratio 1.4 % - Radiology Data [facility] [address] [place] [address] Vascular Lab Report Signed Patient: ERASMO ALCARAZ MR#: [id number] : 1975 Acct:[id number] Age/Sex: 46 / F ADM Date: 08/22/21 Loc: ED Attending Dr: Ordering Physician: CANDE WONG NP Date of Service: 08/22/21 Procedure(s): VL venous duplex LE RT Accession Number(s): [id number] cc: CANDE WONG NP DUPLEX DOPPLER LOWER EXTREMITY VEINS, RIGHT INDICATION / CLINICAL INFORMATION: right leg pain with numbness. TECHNIQUE: Duplex doppler imaging was performed through the veins of the right lower extremity using venous compression and other maneuvers. COMPARISON: None available. FINDINGS: RIGHT COMMON FEMORAL VEIN: Negative. RIGHT FEMORAL VEIN: Negative. RIGHT POPLITEAL VEIN: Negative. RIGHT CALF VEINS: Negative. ADDITIONAL FINDINGS: None. IMPRESSION: 1. No sonographic evidence for DVT in the right lower extremity. Signer Name: Jose E Nguyễn MD Signed: 08/22/2021 2:54 PM Workstation Name: [id number] Transcribed By: [place] Dictated By: Jose E Nguyễn MD Electronically Authenticated By: Jose E Nguyễn MD Signed Date/Time: 08/22/211453 DD/ 52 TD/TT: - Medical Decision Making 46-year-old female that presents with low hemoglobin hematocrit. Patient is stable and was examined by me. Patient admitted with OBGYN. Patient notified of the lab results with no questions noted by the patient. Patient was started with 2 packed RBCs. At time of admission, the patient does not seem toxic or ill in appearance. No acute signs of distress noted. Patient agrees to admission treatment plan of care. No further questions noted by the patient. Critical care attestation.: If time is entered above; I have spent that time in minutes in the direct care of this critically ill patient, excluding procedure time. ED Disposition Clinical Impression: Low hemoglobin and low hematocrit, Anemia requiring transfusions, Anemia due to blood loss, chronic, Right leg pain Fibroid uterus Qualifiers: Uterine leiomyoma location: unspecified location Qualified Code(s): D25.9 - Leiomyoma of uterus, unspecified Menorrhagia Qualifiers: Menorrhagia type: with irregular cycle Qualified Code(s): N92.1 - Excessive and frequent menstruation with irregular cycle Disposition: 09 ADMITTED INPATIENT Is pt being admited?: Yes Condition: Stable Time of Disposition: 19:59
[2021-08-22 19:26] LABS: Anisocytosis 2+; Basophils % (Manual) 0 % (0.0-1.8); Giant Platelets Few; Hypochromasia 2+; Platelet Estimate Consistent w Auto; Total Cells Counted 100
[2021-08-22 19:43] LABS: INR 1.07 (0.87-1.13)
[2021-08-22] MEDS ORDERED: HYDROcodone/ACETAMINOPHEN 5-325 MG TAB PO PRN (21:04)
[2021-08-22] MEDS ORDERED: SODIUM CHLORIDE 0.9% 500 ML 500 ML ONE (21:25)
[2021-08-23] MEDS ORDERED: SODIUM CHLORIDE 0.9% 250ML 250 ML IV ONE (00:20)
[2021-08-23 07:45] LABS: Hematocrit 20.4 % (30.3-42.9); Hemoglobin 6.1 gm/dl (10.1-14.3)
[2021-08-23 10:46] LABS: Bilirubin,Urine NEG (Negative); Blood,Urine NEG (Negative); Color,Urine Yellow (Yellow); Urobilinogen,Urine < 2.0 mg/dL (<2.0)
[2021-08-23 10:50] LABS: Mucus,Urine FEW /HPF
[2021-08-23] MEDS: ACETAMINOPHEN 325 MG TAB PO PRN ×2 (11:22→16:34)
--- NOTE | 2021-08-23 12:34 | History and Physical Report ---
History of Present Illness Date of examination: 08/23/21 Date of admission: 08/22/21 21:04 Chief complaint: Weakness History of present illness: 46 years old, admitted through the emergency room 08/22/2021 for anemia resulting from abnormal uterine bleeding. Patient stated she was aware that her bleeding was resulting from "fibroids ". She is under management by her own physician with plans made for a definitive treatment. Past History Past Medical History: no pertinent history [employer] History: fibroids Medications and Allergies Allergies Allergy/AdvReac Type Severity Reaction Status Date / Time shellfish derived Allergy Swelling Verified 04/25/18 14:14 Home Medications Medication Instructions Recorded Confirmed Last Taken Type Cyanocobalamin [Vitamin B-12] 1,000 mcg PO DAILY 04/25/18 08/23/21 Unknown Hist ory Multivitamin/Iron/Folic Acid 1 each PO DAILY 04/25/18 08/23/21 Unknown History [Centrum Women Tablet] Ferrous Sulfate [Ferrous Sulfate 324 mg PO BID #60 tablet. 12/28/20 08/23/21 Unknown Rx 324 MG] Active Meds: Active Medications Acetaminophen (Acetaminophen 325 Mg Tab) 650 mg PO Q4H PRN PRN Reason: Pain, Mild (1-3) Last Admin: 08/23/21 11:22 Dose: 650 mg Hydrocodone Bitart/Acetaminophen (Hydrocodone/Acetaminophen 5-325 Mg Tab) 2 each PO Q6H PRN PRN Reason: Pain, Moderate (4-6) Last Admin: 08/23/21 00:17 Dose: 2 each Review of Systems Constitutional: fatigue Genitourinary: vaginal bleeding - Vital Signs Vital signs: Vital Signs Temp Pulse Resp BP Pulse Ox 99.0 F 81 14 95/54 100 08/22/21 10:51 08/22/21 10:51 08/22/21 10:51 08/22/21 10:51 08/22/21 10:51 Temp Pulse Resp BP Pulse Ox 98.4 F 71 20 111/65 100 08/23/21 08:44 08/23/21 08:44 08/23/21 08:44 08/23/21 08:44 08/23/21 09:10 - Physical Exam Lungs: Positive: Normal air movement Abdomen: Positive: normal appearance, soft, normal bowel sounds Genitourinary (Female): Positive: other (Pelvic examination deferred at patient's request.) Extremities: Positive: normal Deep Tendon Reflex Grade: Normal +2 Results Result Diagrams: 08/23/21 07:29 08/22/21 17:40 Abnormal lab results 08/22/21 08/22/21 08/22/21 Range/Units 17:40 17:40 18:48 RBC 2.37 L (3.65-5.03) M/mm3 Hgb 4.3 L* (10.1-14.3) gm/dl Hct 14.7 L* (30.3-42.9) % MCV 62 L (79-97) fl MCH 18 L (28-32) pg MCHC 29 L (30-34) % RDW 29.1 H (13.2-15.2) % Plt Count 639 H (140-440) K/mm3 PT 15.1 H (12.2-14.9) Sec. APTT 22.0 L (24.2-36.6) Sec. Creatinine 0.5 L (0.6-1.2) mg/dL Crossmatch 08/22/21 08/23/21 Range/Units 19:00 07:29 RBC (3.65-5.03) M/mm3 Hgb 6.1 L (10.1-14.3) gm/dl Hct 20.4 L (30.3-42.9) % MCV (79-97) fl MCH (28-32) pg MCHC (30-34) % RDW (13.2-15.2) % Plt Count (140-440) K/mm3 PT (12.2-14.9) Sec. APTT (24.2-36.6) Sec. Creatinine (0.6-1.2) mg/dL Crossmatch See Detail All other labs normal. Assessment and Plan - Patient Problems (1) Menorrhagia Current Visit: Yes Status: Acute Qualifiers: Menorrhagia type: with irregular cycle Qualified Code(s): N92.1 - Excessive and frequent menstruation with irregular cycle (2) Anemia Current Visit: No Status: Acute Qualifiers: Anemia type: iron deficiency Iron deficiency anemia type: chronic blood loss Qualified Code(s): D50.0 - Iron deficiency anemia secondary to blood loss (chronic) Plan to address problem: The plan of management includes transfusion of patient and allowing her to return to her own physicians.
[2021-08-23] MEDS ORDERED: SODIUM CHLORIDE 0.9% 500 ML 500 ML IV SCH (14:30)
[2021-08-23 23:20] LABS: Hematocrit 23.7 % (30.3-42.9); Hemoglobin 7.4 gm/dl (10.1-14.3)
[2021-08-24 04:29] VITALS: BP 114/78
--- NOTE | 2021-08-24 08:58 | Electrocardiograph Report ---
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
== END 2021-08-24 09:00 | disposition home or self-care (01) ==
LOC: ED 10:30 → OB 21:04
PROVIDERS: ADMIT Obstetrics & Gynecology; ATTEND Obstetrics & Gynecology
DX: D25.9 Leiomyoma of uterus, unspecified (principal); D50.0 Iron deficiency anemia secondary to blood loss (chronic); N92.1 Excessive and frequent menstruation with irregular cycle; Z79.899 Other long term (current) drug therapy; Z98.890 Other specified postprocedural states
CPT/HCPCS: 36415; 36430; 80053; 81001; 82550; 85014; 85018; 85025; 85610; 85730; 86850; 86900; 86901; 86920; 93005; 93971; 96360; 96361; G0378; J7030; J7040; J7050; P9016; 85007; G0379